=== PATIENT | female | born 1960 | race African-American/Black ===

== ENCOUNTER 2016-07-04 13:10 | Inpatient (IN) ==
[2016-07-04] MEDS ORDERED: SODIUM CHLORIDE 0.9% 1,000 ML IV STA (13:31)
--- NOTE | 2016-07-04 13:34 | Emergency Department Note ---
Arrival - Arrival Chief Complaint: Altered Mental Status Stated Complaint: increased blood glucose ED Nursing Triage Note: Transfer from [facility] for further evaluation of increased blood glucose of 939mg/dl. +altered mental status. Denies pain. Was given NS 500ml bolus and Novolin R 10units IV at [facility] prior to arrival. Biswas catheter noted. Mode of Arrival: Stretcher Limitations: Altered Mental Status Source: Patient, EMS, RN Notes Reviewed Time Seen by Provider: 07/04/16 13:26 - History of Present Illness HPI Narrative: Patient is a 56-year-old white female transferred from [facility] in [place] for evaluation of DKA. Patient is a long history of diabetes mellitus. She apparently has had nausea and vomiting for the last 2 days. Her symptoms began on July 02. Patient was seen at [facility] and found to have a blood sugar greater than 900 with a CO2 of 10 and acidosis consistent with diabetic ketoacidosis. History is limited due to patient's lethargy. Onset (ago): day(s) (2) Consistency: constant Severity: moderate, severe Quality: other Date of Last Menstrual Period: hyst Allergies/Adverse Reactions: Allergies Allergy/AdvReac Type Severity Reaction Status Date / Time acetaminophen [From Lortab] Allergy Severe Vomiting Verified 07/04/16 13:23 hydrocodone [From Lortab] Allergy Severe Vomiting Verified 07/04/16 13:23 Penicillins Allergy Severe RASH Verified 07/04/16 13:23 adhesive Allergy Unknown Unknown/Unable Verified 07/04/16 13:23 to obtain Home Medications: Home Medications Medication Instructions Recorded Confirmed Type HumuLIN 70/30 35 units SUBCUT BEDTIME 09/24/14 10/18/14 History HumuLIN 70/30 60 units SUBCUT DAILY 09/24/14 10/18/14 History Lisinopril 10 mg PO DAILY 09/24/14 10/18/14 History Metoclopramide Tab [Reglan Tab] 10 mg PO QID 09/24/14 10/18/14 History Omeprazole 20 mg PO DAILY 09/24/14 10/18/14 History Potassium Chloride [K-Tab ER] 1 tablet PO DAILY 09/24/14 10/18/14 History Pravastatin [Pravachol] 20 mg PO BEDTIME 09/24/14 10/18/14 History glyBURIDE [Diabeta] 5 mg PO DAILY W/BREAKFAST 09/24/14 10/18/14 History Review of System - Review of System ROS unobtainable: due to mental status Medical,Surgical,& Family Hx - Medical History Cardio: History of: Hypertension HEENT: History of: Eye Problem, Glaucoma Endocrine: History of: Diabetes Mellitus (IDDM), Diabetes Mellitus (NIDDM) Respiratory: History of: Obstructive Sleep Apnea Gastrointestinal: History of: GERD, GI Problems (GASTROPARESIS) Other: History of: MRSA - Surgical History HEENT Surgeries: Surgical HX of: Eye Surgery (CATARACT SURGERY) Abdominal Surgeries: Surgical HX of: Cholecystectomy Reproductive Surgeries: Surgical HX of;: Breast Surgery (BX X2), Hysterectomy - Family History Family History: Reports;: Family Diabetes (MOM), Family Heart Disease (DAD), Family Hypertension (MOM), Family Psychiatric Problems (MOM), Family Stroke (MOM ) - Social History Smoking Status: Never smoker Frequency of Alcohol Use: None Type of Drug Use: None Functional capacity: independent ambulation Exam Vital Signs: Vital Signs Temperature 98.0 F 07/04/16 13:10 Pulse Rate 18 L 07/04/16 13:10 Respiratory Rate 20 07/04/16 13:10 Blood Pressure 104/62 07/04/16 13:10 O2 Sat by Pulse Oximetry 100 07/04/16 13:10 GENERAL: This is a well-nourished well-developed obese, lethargic black female in no apparent distress. VITAL SIGNS: Reviewed HEENT: Head is atraumatic and normocephalic. Pupils are equal round react to light. Extraocular movements are intact. Oropharynx is benign with dry mucous membranes. NECK: Neck is soft and supple without tenderness. There are no masses. There is no lymphadenopathy. LUNGS: Lungs are clear to auscultation. Chest rises symmetrically. There is no chest wall tenderness. CV: Heart is regular rate and rhythm without murmurs rubs or gallops. ABDOMEN: Abdomen is soft, nontender to palpation. There are no abdominal abnormal masses palpated. There is no organomegaly. Bowel sounds are present and active. SKIN: Skin is warm and dry. No rash. EXTREMITIES: Patient has full range of motion without tenderness. There is no pedal edema. NEUROLOGIC: Lethargic. Patient is arousable to vocal stimulus. Cranial nerves II through XII are grossly intact. Motor is 5 over 5 in all extremities bilaterally. Course Course Narrative: Patient was given an IV fluid bolus while in the emergency department. She will be started on insulin infusion. - Consultations Consultation #1: Discussed with hospitalist. Patient will be admitted to their service. Time: 13:40 Results - Labs Lab Results: I have reviewed the patients labs - EKG EKG results: interpreted by KATHYAD - Diagnostic Findings Procedure: Chest x-ray: image reviewed by me (Chest x-ray reviewed from [facility] and this reveals no evidence of cardiomegaly or pleural effusions. There is no infiltrate.), CT: image reviewed by me (CT head from [facility]: No evidence of acute intracranial lesion or hemorrhage.) Disposition Clinical Impression: Diabetic ketoacidosis Case discussed with: patient Time of Disposition: 13:36
[2016-07-04] MEDS ORDERED: INSULIN REGULAR DRIP 100 ML IV SCH (14:00)
[2016-07-04] MEDS ORDERED: INSULIN REGULAR DRIP 100 ML IV ONE (14:11)
[2016-07-04 14:24] LABS: ABG Base Excess -19.3 MMOL/L (-2.5-2.5); ABG HCO3 10.6 MMOL/L (20-26); ABG Oxygen Saturation 98.1 % (95-100); ABG PH 7.239 (7.35-7.45); ABG TCO2 6.3 MMOL/L (23-27); Allen Test Positive; Pt O2 Delivery Device Room Air
[2016-07-04 14:26] LABS: ABG PCO2 16.5 MM HG (35-48)
[2016-07-04 14:43] LABS: Calcium 7.8 MG/DL (8.5-10.1); Osmolality,Calculated 327.5 MOS/KG (273-304); Potassium 5.1 MMOL/L (3.5-5.1)
[2016-07-04] MEDS ORDERED: MAGNESIUM SULF RIDER 2 GM in PREMIX 1 EACH IV PRN (14:44)
[2016-07-04] MEDS ORDERED: MAGNESIUM SULF RIDER 4 GM in PREMIX 1 EACH IV PRN (14:44)
[2016-07-04] MEDS ORDERED: INSULIN REGULAR 100 UNIT/ML IV ONE (14:44)
[2016-07-04] MEDS ORDERED: DEXTROSE 50% 25 GM/50 ML VIAL IV PRN ×2 (14:44)
[2016-07-04] MEDS ORDERED: SODIUM PHOSPHATE INJ 26 MMOL in SODIUM CHLORIDE 0.9% 250 ML IV PRN (14:44)
[2016-07-04] MEDS ORDERED: SODIUM CHLORIDE 0.9% 1,000 ML IV ONE (14:44)
[2016-07-04] MEDS ORDERED: SODIUM BICARB INJ 100 MEQ in STERILE WATER INJ 400 ML IV PRN (14:44)
--- NOTE | 2016-07-04 15:18 | XRay Report ---
Referring Physician: SEVERIANO Linda Exam: XR chest 1V Date: July 04, 2016 at 3:00 PM Reason: Shortness of breath Comparison: Chest single view July 04, 2016 at 11:28 AM Findings: The cardiac silhouette is upper normal in size. The lungs are poorly expanded, and there is likely minimal atelectasis at the medial right lung base. The interstitial markings are also slightly prominent bilaterally. This could be secondary to the poor inspiratory depth or mild pulmonary edema. No pneumothorax or pleural effusion is identified. No acute osseous process is seen. Impression: 1. Borderline cardiomegaly. 2. The lungs are poorly expanded, and there is likely minimal atelectasis at the medial right lung base. The interstitial markings are also slightly prominent bilaterally, which could be secondary to the poor inspiratory depth or mild pulmonary edema. PROCEDURE INTERPRETED AT [facility] DEPARTMENT OF RADIOLOGY Final Report Signed by: Dr. Lucas Francis
--- NOTE | 2016-07-04 15:19 | Hospitalist History & Physical ---
<Javon Kwong - Last Filed: 07/04/16 14:52> Assessment and Plan - Time spent with patient Time spent with patient: Greater than 30 minutes (1) Diabetic ketoacidosis Status: Acute Assessment and plan: Patient admitted to ICU for further evaluation and treatment. pH 7.239, pCO2 16.5, HCO3 10.6, Glu 719, b-Hydroxybutyric 5. Initiate DKA protocol. Current Visit: Yes (2) Gastroparesis Status: Acute Assessment and plan: History of gastroparesis. Patient takes Reglan at home. Current Visit: Yes History of Present Illness Chief complaint: DKA History of present illness: Ms. Mckeon is a 56 year old female witha history of IDDM, hypertension and gastroparesis who presents to the [facility] ED for further evaluation of diabetic ketoacidosis. The patient is a known diabetic with an extensive diabetic history , however she denies having ever had DKA. On exam, she is lethargic and her speech is delayed. She complains of being cold and yawns frequently. Her sister , whom she lives with, is at bedside and gave most of the history. The patient was last known well on Saturday morning before she began vomiting. Her family initially thought this was due to her gastroparesis, however, it was unrelenting and they were unable to administer a phenergan suppository. This morning, the patient continued to be lethargic and was unable to move. She would not get off the couch and was seemingly unable to use her arms. She was seen at [facility] and found to have blood sugars in excess of 900 with a CO2 of 10, pH of 7.1. ROS is limited due to patient's current level of consciousness. Preliminary lab work at [facility] shows pH 7.239, pCO2 16.5, HCO3 10.6 , Glu 719, b-Hydroxybutyric 5. She will be admitted to the ICU for further evaluation and treatment. Patient is a full code. Case has been discussed with Dr. Dooley. Home Medications Medication Instructions Recorded Confirmed Type HumuLIN 70/30 35 units SUBCUT BEDTIME 09/24/14 10/18/14 History HumuLIN 70/30 60 units SUBCUT DAILY 09/24/14 10/18/14 History Lisinopril 10 mg PO DAILY 09/24/14 10/18/14 History Metoclopramide Tab [Reglan Tab] 10 mg PO QID 09/24/14 10/18/14 History Omeprazole 20 mg PO DAILY 09/24/14 10/18/14 History Potassium Chloride [K-Tab ER] 1 tablet PO DAILY 09/24/14 10/18/14 History Pravastatin [Pravachol] 20 mg PO BEDTIME 09/24/14 10/18/14 History glyBURIDE [Diabeta] 5 mg PO DAILY W/BREAKFAST 09/24/14 10/18/14 History Allergies Allergy/AdvReac Type Severity Reaction Status Date / Time acetaminophen [From Lortab] Allergy Severe Vomiting Verified 07/04/16 13:23 hydrocodone [From Lortab] Allergy Severe Vomiting Verified 07/04/16 13:23 Penicillins Allergy Severe RASH Verified 07/04/16 13:23 adhesive Allergy Unknown Unknown/Unable Verified 07/04/16 13:23 to obtain Medical,Surgical,& Family Hx - Medical History Cardio: History of: Hypertension HEENT: History of: Eye Problem, Glaucoma Endocrine: History of: Diabetes Mellitus (IDDM), Diabetes Mellitus (NIDDM) Respiratory: History of: Obstructive Sleep Apnea Gastrointestinal: History of: GERD, GI Problems (GASTROPARESIS) Other: History of: MRSA - Surgical History HEENT Surgeries: Surgical HX of: Eye Surgery (CATARACT SURGERY) Abdominal Surgeries: Surgical HX of: Cholecystectomy Reproductive Surgeries: Surgical HX of;: Breast Surgery (BX X2), Hysterectomy - Family History Family History: Reports;: Family Diabetes (MOM), Family Heart Disease (DAD), Family Hypertension (MOM), Family Psychiatric Problems (MOM), Family Stroke (MOM ) - Social History Smoking Status: Never smoker Frequency of Alcohol Use: None Type of Drug Use: None ROS unobtainable: due to encephalopathy Exam - Constitutional General appearance: morbidly obese - Head Head exam: Present: normal inspection, normocephalic, atraumatic - Eye Eye exam: Present: EOMI. Absent: conjunctival injection, nystagmus - ENT ENT exam: Present: normal exam, normal external ear exam - Neck Neck exam: Present: normal inspection. Absent: lymphadenopathy, tenderness - Respiratory Respiratory exam: Present: decreased breath sounds. Absent: rhonchi, wheezes - Cardiovascular Cardiovascular exam: Present: tachycardia. Absent: carotid bruit - GI/Abdominal GI/Abdominal exam: Present: hypoactive bowel sounds. Absent: ascites, distended , mass, tenderness - Extremities Exam Extremities exam: Present: normal capillary refill. Absent: edema - Back Exam Back exam: Present: normal inspection. Absent: CVA tenderness (L), CVA tenderness (R) - Neurological Exam Neurological exam: Present: altered. Absent: alert, oriented X3 - Psychiatric Psychiatric exam: Absent: anxious, depressed - Skin Skin exam: Present: warm, dry, erythema Results - Labs Lab Results: I have reviewed the past 24 hour labs - Diagnostic Findings Procedure: Chest x-ray: image reviewed by me, report reviewed by me <Olaf Dooley - Last Filed: 07/04/16 15:36> History of Present Illness History of present illness: Ms. Mckeon is a 56 year old female with previous history of type 1 diabetes mellitus. For approximately 24 hours prior to admission her family has noted her to be lethargic. They brought her to [facility] where she was found to have a blood glucose greater than 900 with PCO2 10 and pH of 7.10. She was transferred to [facility] for further evaluation and management of diabetic ketoacidosis. On admission to the emergency department here laboratory studies demonstrated the following: Arterial pH 7.239 PCO2 16.5 bicarbonate 10.6 and glucose 719. Physical examination disclosed a lethargic female with no gross abnormalities. She will be treated here with the standard protocol for diabetic ketoacidosis. I have discussed this case with the physician's speech pathologist assistant SEVERIANO Linda. I have reviewed all the pertinent laboratory test results, and interviewed the patient, and examined the patient. I am in agreement with the plans as described by Mr. Kwong. Exam - Constitutional Vitals: Period Temp Pulse Resp BP Sys/Malagon Pulse Ox Last 24 Hr 107-116 16-20 102-118/31-54 99-100 Results - Labs CBC & BMP: 07/04/16 14:10
[2016-07-04] MEDS: INSULIN REGULAR DRIP 100 ML IV SCH (15:25)
[2016-07-04 15:27] LABS: Apearance,Urine Slightly Hazy (Clear); Bacteria,Urine Occasional /HPF (Few); Bilirubin,Urine Negative (Negative); Blood, Urine Small mg/dL (Negative); Glucose,Urine (UA) >=500 mg/dL (Negative); Ketones,Urine 80 mg/dL (Negative); Mucus,Urine Occasional /LPF (Occasional); Nitrite,Urine Negative (Negative); Protein,Urine Negative; Squamous Epithelial Cell,Urine Occasional /HPF (0-10); Urine Color Straw (Yellow); Urine Specific Gravity 1.022 (1.001-1.035); Urine Urobilinogen < 2.0 EU/DL (0.2-1.0); WBC,Urine 1 /HPF (0-6)
[2016-07-04] MEDS: ENOXAPARIN 40 MG/0.4 ML SYRINGE SUBCUT SCH (15:39)
[2016-07-04 16:17] LABS: ABG HCO3 12.6 MMOL/L (20-26); ABG Oxygen Saturation 98.6 % (95-100); ABG PH 7.295 (7.35-7.45)
[2016-07-04 16:25] LABS: ABG PCO2 18.6 MM HG (35-48)
[2016-07-04 16:33] LABS: Basophils % 0.2 % (0.0-0.8); Eosinophils % 0.1 % (0.00-10.9); Hematocrit 37.6 VOL% (35.7-47.0); Hemoglobin 12.4 GM/DL (12.0-16.0); Immature Granulocytes % 1.2 %; Immature Granulocytes Absolute 0.23 #; Lymphocytes # 2.1 10*3/uL (1.4-4.0); Lymphocytes % 10.4 % (21.3-54.2); Mean Corpuscular Hemoglobin 26 PG (27-34); Mean Corpuscular Volume 79.5 FL (87-102); Mean Platelet Volume 10.9 FL (9.6-12.0); Monocytes % 10.1 % (1.7-12.7); Neutrophils # 15.5 10*3/uL (1.4-7.4); Platelet Count 261 T/CUMM (130-400); Red Blood Count 4.73 MC/CUMM (3.8-5.5); Red Cell Distribution Width 14.3 % (9.3-17.3); White Blood Count 19.8 T/CUMM (4-12)
[2016-07-04] MEDS: SODIUM CHLORIDE 0.9% 1,000 ML IV SCH ×2 (16:36→18:41)
[2016-07-04 16:56] LABS: Magnesium 2.7 MG/DL (1.8-2.4); Phosphorous 4.1 MG/DL (2.5-4.9)
[2016-07-04 16:57] LABS: Calcium 7.8 MG/DL (8.5-10.1); Osmolality,Calculated 325.1 MOS/KG (273-304); Potassium 4.2 MMOL/L (3.5-5.1)
[2016-07-04] MEDS ORDERED: INSULIN REGULAR 100 UNIT/ML IV PRN (18:17)
[2016-07-04 18:39] LABS: ABG Base Excess -14.9 MMOL/L (-2.5-2.5); ABG HCO3 13.3 MMOL/L (20-26); ABG Oxygen Saturation 98.9 % (95-100); ABG PH 7.318 (7.35-7.45); ABG TCO2 8.7 MMOL/L (23-27); Allen Test Positive; Pt O2 Delivery Device Room Air
[2016-07-04] MEDS ORDERED: VANCOMYCIN INJ 1,500 MG in SODIUM CHLORIDE 0.9% 500 ML IV SCH (19:00)
[2016-07-04 19:09] LABS: Calcium 7.8 MG/DL (8.5-10.1); Osmolality,Calculated 321.7 MOS/KG (273-304); Potassium 3.9 MMOL/L (3.5-5.1)
[2016-07-04] MEDS ORDERED: SODIUM CHLORIDE 0.9% 1,000 ML IV SCH (19:45)
[2016-07-04] MEDS ORDERED: LEVOFLOXACIN INJ 500 MG in PREMIX 1 EACH IV SCH (21:00)
[2016-07-04 23:04] LABS: Calcium 7.3 MG/DL (8.5-10.1); Osmolality,Calculated 318.1 MOS/KG (273-304); Potassium 3.9 MMOL/L (3.5-5.1)
[2016-07-04] MEDS ORDERED: LEVOFLOXACIN INJ 100 ML IV ONE (23:33)
[2016-07-05] MEDS: POTASSIUM CHLORIDE RIDER 10 MEQ in PREMIX 1 EACH IV PRN ×2 (00:13→01:33)
[2016-07-05] MEDS ORDERED: SODIUM CHLOR 0.45% KCL 20 MEQ 20 MEQ/1,000 ML BAG IV SCH (00:30)
[2016-07-05] MEDS: DEXT 5% NACL 0.45% KCL 20 MEQ 20 MEQ/1,000 ML BAG IV SCH ×5 (01:11→19:00)
[2016-07-05] MEDS: INSULIN REGULAR DRIP 100 ML IV SCH ×2 (04:37→15:59)
[2016-07-05 04:45] LABS: Basophils % 0.2 % (0.0-0.8); Eosinophils % 0.3 % (0.00-10.9); Hematocrit 35.5 VOL% (35.7-47.0); Hemoglobin 12.1 GM/DL (12.0-16.0); Immature Granulocytes % 0.6 %; Lymphocytes # 1.6 10*3/uL (1.4-4.0); Lymphocytes % 10.4 % (21.3-54.2); Mean Corpuscular HGB Conc 34.1 GM/DL (32-36); Mean Corpuscular Hemoglobin 27 PG (27-34); Mean Platelet Volume 10.4 FL (9.6-12.0); Monocytes # 1.9 10*3/uL (0.11-0.8); Monocytes % 11.9 % (1.7-12.7); Neutrophils # 12.1 10*3/uL (1.4-7.4); Neutrophils % 76.6 % (38.7-73.9); Platelet Count 258 T/CUMM (130-400); Red Blood Count 4.55 MC/CUMM (3.8-5.5); Red Cell Distribution Width 14.6 % (9.3-17.3); White Blood Count 15.7 T/CUMM (4-12)
[2016-07-05 05:23] LABS: Osmolality,Calculated 313.1 MOS/KG (273-304)
[2016-07-05 05:25] LABS: Magnesium 2.3 MG/DL (1.8-2.4); Phosphorous 2.5 MG/DL (2.5-4.9)
[2016-07-05] MEDS: ONDANSETRON 4 MG/2 ML VIAL IV PRN (06:00)
[2016-07-05] MEDS: SODIUM CHLOR 0.45% KCL 20 MEQ 20 MEQ/1,000 ML BAG IV SCH ×2 (06:31→12:27)
--- NOTE | 2016-07-05 07:38 | General Surgery Consult Note ---
Assessment and Plan - Time spent with patient Time spent with patient: Less than 30 minutes (1) Abscess of pubic region Status: Acute Assessment and plan: Impression: 1. Abscess of the pubis 2. Diabetic ketoacidosis under control 3. Diabetes mellitus adult onset 4. Obesity Plan: Surgical debridement of abscess of the pubis Current Visit: Yes History of Present Illness Chief complaint: Diabetic ketoacidosis with abscess of the pubis History of present illness: Ms. Mckeon is a 56 year old female -[place] who is obese and has diabetes and comes in with a three-day history some nausea and vomiting and weakness and decreased appetite. Was found to have a blood sugar of 900 on admission and was put in and treated for DKA. We are consulted because a looking for source for her hyperglycemia and found a wound on the pubis which has a good bit of necrotic tissue on it probably represents an old abscess that needs to be debriding cleaned up in order to get that process under control and possibly have the glucose. Home Medications Medication Instructions Recorded Confirmed Type HumuLIN 70/30 35 units SUBCUT BEDTIME 09/24/14 10/18/14 History HumuLIN 70/30 60 units SUBCUT DAILY 09/24/14 10/18/14 History Lisinopril 10 mg PO DAILY 09/24/14 10/18/14 History Metoclopramide Tab [Reglan Tab] 10 mg PO QID 09/24/14 10/18/14 History Omeprazole 20 mg PO DAILY 09/24/14 10/18/14 History Potassium Chloride [K-Tab ER] 1 tablet PO DAILY 09/24/14 10/18/14 History Pravastatin [Pravachol] 20 mg PO BEDTIME 09/24/14 10/18/14 History glyBURIDE [Diabeta] 5 mg PO DAILY W/BREAKFAST 09/24/14 10/18/14 History Allergies Allergy/AdvReac Type Severity Reaction Status Date / Time acetaminophen [From Lortab] Allergy Severe Vomiting Verified 07/04/16 13:23 hydrocodone [From Lortab] Allergy Severe Vomiting Verified 07/04/16 13:23 Penicillins Allergy Severe RASH Verified 07/04/16 13:23 adhesive Allergy Unknown Unknown/Unable Verified 07/04/16 13:23 to obtain Medical,Surgical,& Family Hx - Medical History Cardio: History of: Hypertension HEENT: History of: Eye Problem, Glaucoma Endocrine: History of: Diabetes Mellitus (IDDM), Diabetes Mellitus (NIDDM) Respiratory: History of: Obstructive Sleep Apnea Gastrointestinal: History of: GERD, GI Problems (GASTROPARESIS) Other: History of: MRSA - Surgical History HEENT Surgeries: Surgical HX of: Eye Surgery (CATARACT SURGERY) Abdominal Surgeries: Surgical HX of: Cholecystectomy Reproductive Surgeries: Surgical HX of;: Breast Surgery (BX X2), Hysterectomy - Family History Family History: Reports;: Family Diabetes (MOM), Family Heart Disease (DAD), Family Hypertension (MOM), Family Psychiatric Problems (MOM), Family Stroke (MOM ) - Social History Smoking Status: Never smoker Frequency of Alcohol Use: None Type of Drug Use: None 12 point system: reviewed and no additional remarkable complaints except as stated Exam - Constitutional Vitals: Period Temp Pulse Resp BP Sys/Malagon Pulse Ox Last 24 Hr 97.9 F-98.2 F 100-116 13-24 75-149/9-79 95-100 General appearance: mild distress - Head Head exam: Present: normal inspection - ENT ENT exam: Present: normal exam - Neck Neck exam: Present: normal inspection - Respiratory Respiratory exam: Present: rales - Cardiovascular Cardiovascular exam: Present: RRR - GI/Abdominal GI/Abdominal exam: Present: hypoactive bowel sounds, soft, other (Obese with a necrotic wound of the mons pubis left side without obvious drainage but good bit of necrotic tissue) - Anus/Rectum Anus/Rectum: other (Small abrasion of the sacrum.) - Extremities Exam Extremities exam: Present: normal inspection - Back Exam Back exam: Present: normal inspection - Neurological Exam Neurological exam: Present: alert, oriented X3, CN II-XII intact - Skin Skin exam: Present: normal color, warm, dry Results - Labs CBC & BMP: 07/05/16 04:37 07/05/16 04:37 Lab Results: I have reviewed the past 24 hour labs
--- NOTE | 2016-07-05 07:46 | EKG Report ---
Stationary ECG Study [facility] Test Date: 07/05/2016 7:46 AM Pat Name: STEPHEN SOLITARIO Department: Room: 105 Gender: F Irb Compliance Coordinator: JUAN : 1960 Requested by: Lino Vail Order Number: [id number] Reading MD: SADE RIVERO Intervals [place] Rate: 106 P: 49 NH: 102 QRS: 29 QRSD: 76 T: 259 QT: 336 QTc: 398 Interpretive Statements SINUS TACHYCARDIA WITH SHORT NH INTERVAL POSSIBLE SEPTAL MYOCARDIAL INFARCTION, PROBABLY OLD VERSUS PSEUDOINFARCT PATTERN MODERATE T-WAVE ABNORMALITY, CONSIDER LATERAL ISCHEMIA MODERATE T-WAVE ABNORMALITY, CONSIDER INFERIOR ISCHEMIA Electronically Signed On 07-09-16 07:24:33 CDT by SADE RIVERO [email or web address]
[2016-07-05 08:10] LABS: Calcium 7.8 MG/DL (8.5-10.1); Potassium 4.3 MMOL/L (3.5-5.1)
[2016-07-05 08:29] LABS: PT Patient Result 10.1 SECS; Partial Thromboplastin Time 23.4 SECS (0-40)
[2016-07-05] MEDS ORDERED: CLINDAMYCIN INJ 900 MG in PREMIX 1 EACH IV ONE (08:30)
[2016-07-05] MEDS: SODIUM CHLORIDE 0.45% 1,000 ML IV SCH ×2 (09:26→21:14)
[2016-07-05] MEDS ORDERED: PHENYLEPHRINE 1 MG/10 ML SYRINGE IV ONE (09:40)
[2016-07-05] MEDS ORDERED: LIDOCAINE 2% 5 ML VIAL ONE (09:40)
[2016-07-05] MEDS ORDERED: ONDANSETRON 4 MG/2 ML VIAL ONE (09:40)
[2016-07-05] MEDS ORDERED: KETOROLAC 30 MG/1 ML VIAL ONE (09:40)
[2016-07-05] MEDS ORDERED: PROPOFOL 200 MG/20 ML VIAL IV ONE (09:40)
[2016-07-05] MEDS ORDERED: LIDOCAINE 1%/EPI INJ 20 ML VIAL ONE (10:01)
[2016-07-05] MEDS ORDERED: BUPIVACAINE 0.25% 50 ML VIAL ONE ×2 (10:01→10:04)
--- NOTE | 2016-07-05 10:30 | Operative Note ---
Date of procedure: 07/05/16 Pre-op diagnosis: Abscess of the pubis Post-op diagnosis: same Procedure: Operative note: Preoperative diagnosis: Abscess of the pubis Postoperative diagnosis: Same Procedure: Excisional debridement of abscess cyst of the left side of the pubis Surgeon Dr. Vail Anesthesia was managed anesthetic care with local Brief history: 56-year-old -Faroese female who came in with DKA and on investigation had what looked like an abscess on the mons pubis left side. Her glucoses were under better control but felt is important to go ahead and get this area cleaned up and debrided at this time. Procedure: Patient supine position prepped and draped in sterile fashion timeout and antibiotics completed approaches area of the mons pubis just to the left of midline. There is a necrotic area of skin that is slightly raised with some minor drainage measuring 3 x 10 x 0 cm. We then infiltrated around with local anesthetic. With a knife blade and ellipsed this area completely out with a little residual necrotic draining material in the subtenons tissue. We debrided the skin and necrotic skin and necrotic subtenons tissue from the wound bed. I then took the knife and debrided this area of necrotic subtenons tissue and scant taken that for cultures. We then debrided a good bit loose fatty tissue in the wound bed need. We then irrigated the wounds with saline solution and used to light cauterization control bleeding. We now have a wound that is 4 x 2 x 1.5 cm in size. We then packed it with the Dakin's wet gauze took patient recovery. Estimated blood loss 5 cc Sponge count correct 2 Drains none Complications none Condition stable satisfactory Anesthesia: MAC, local (0.25% Marcaine with epinephrine mixed [id number] 1% Xylocaine plain) Surgeon / Physician: Lino Vail Estimated blood loss: minimal Specimens: other (Tissue for pathology and culture) Condition: stable Disposition: ICU Results - Labs CBC & BMP: 07/05/16 04:37 07/05/16 07:27 Discharge Plan - Discharge Medications No Action Metoclopramide Tab [Reglan Tab] 10 mg PO QID Lisinopril 10 mg PO DAILY glyBURIDE [Diabeta] 5 mg PO DAILY W/BREAKFAST HumuLIN 70/30 60 units SUBCUT DAILY HumuLIN 70/30 35 units SUBCUT BEDTIME Potassium Chloride [K-Tab ER] 1 tablet PO DAILY Omeprazole 20 mg PO DAILY Pravastatin [Pravachol] 20 mg PO BEDTIME - Follow Up or Referral - Forms/Instructions
--- NOTE | 2016-07-05 10:47 | Anesthesia Post-Op ---
Anesthesia Post OP - Post Ansesthetic Evaluation Patient seen in post op: Yes Resp: within normal limits CV: within normal limits Mental: within normal limits Temp: within normal limits Zrce-Sm-Gbwyboqly: within normal limits Nausea and Vomiting: within normal limits Pain: within normal limits
[2016-07-05] MEDS ORDERED: fentaNYL 100 MCG/2 ML VIAL ONE (10:49)
[2016-07-05] MEDS ORDERED: MIDAZOLAM 2 MG/2 ML VIAL ONE (10:49)
[2016-07-05 11:32] LABS: Calcium 8.4 MG/DL (8.5-10.1); Osmolality,Calculated 304.3 MOS/KG (273-304); Potassium 4.9 MMOL/L (3.5-5.1)
--- NOTE | 2016-07-05 13:23 | Hospitalist Progress Note ---
Exam - Constitutional Vitals: Period Temp Pulse Resp BP Sys/Malagon Pulse Ox Last 24 Hr 97 F-98.9 F 100-116 13-24 75-187/9-99 94-100 Results - Labs CBC & BMP: 07/05/16 04:37 07/05/16 11:11
--- NOTE | 2016-07-05 13:31 | Hospitalist Progress Note ---
Assessment and Plan (1) Abdominal wall abscess Status: Acute Assessment and plan: Stable status post incision and drainage. She will continue on intravenous vancomycin and clindamycin. Current Visit: Yes (2) Diabetic ketoacidosis Status: Acute Assessment and plan: Her most recent blood glucose was 141. All of her blood glucose today have been below 200. I would discontinue the insulin infusion and begin her on sliding scale regular insulin coverage. Current Visit: Yes (3) Gastroparesis Status: Acute Assessment and plan: Stable. Current Visit: Yes (4) Acute on chronic renal failure Status: Acute Assessment and plan: Her BUN and creatinine have decreased from 56 and 2.3 on admission to 38 and 1.8 today. I will continue infusion of intravenous normal saline. Current Visit: Yes (5) Encephalopathy Status: Acute Assessment and plan: She was extremely lethargic yesterday, attributed to her infection and diabetic ketoacidosis. She remains lethargic today will know she is more awake than yesterday. She will undergo a CT scan of the head for further evaluation. Current Visit: Yes Hospitalist: Subjective Interval history: Ms. Mckeon is a 56-year-old -[place] female with previously known history of type 1 diabetes mellitus. She was hospitalized here yesterday with diabetic ketoacidosis and an abscess of the pubis. She has been treated with intravenous vancomycin and clindamycin. She underwent incision and drainage of the abscess earlier today. She has been treated with standard intravenous regular insulin infusion protocol. Her most recent blood glucose is 141. She continues to be lethargic but is much more responsive than she was yesterday. Exam - Constitutional Vitals: Period Temp Pulse Resp BP Sys/Malagon Pulse Ox Last 24 Hr 97 F-98.9 F 100-116 13-24 75-187/9-99 94-100 General appearance: no acute distress - Head Head exam: Present: normal inspection, normocephalic - Eye Eye exam: Present: EOMI Pupils: Present: MARCO - Neck Neck exam: Present: normal inspection - Respiratory Respiratory exam: Present: clear to auscultation bilaterally - Cardiovascular Cardiovascular exam: Present: regular rate and rhythm - GI/Abdominal GI/Abdominal exam: Present: normal bowel sounds, soft, other (Bandage of lower abdomen.) - Extremities Exam Extremities exam: Present: normal inspection - Neurological Exam Neurological exam: Present: alert, other (Lethargic) - Psychiatric Psychiatric exam: Present: normal affect - Skin Skin exam: Present: normal color, warm, dry Results - Labs CBC & BMP: 07/05/16 04:37 07/05/16 11:11
[2016-07-05] MEDS ORDERED: DEXTROSE 50% 25 GM/50 ML VIAL IV PRN (14:04)
[2016-07-05] MEDS: ENOXAPARIN 40 MG/0.4 ML SYRINGE SUBCUT SCH (16:10)
[2016-07-05] MEDS: CLINDAMYCIN INJ 900 MG in PREMIX 1 EACH IV SCH (16:10)
[2016-07-05] MEDS: INSULIN NPH/REGULAR 70/30 100 UNIT/ML SUBCUT SCH (16:10)
[2016-07-05] MEDS: INSULIN REGULAR 100 UNIT/ML SUBCUT SCH ×2 (16:13→21:07)
--- NOTE | 2016-07-05 16:42 | CT Report ---
History: Altered mental status. Encephalopathy. Lethargic Date: 07/05/2016 Study: CT head without contrast Comparison exam: Outside CT head July 04, [address] sections were obtained through the head without IV contrast. This CT exam was performed using one or more the following dose reduction techniques: Automated exposure control, adjustment of the MA and/or KV according to patient size, or use of iterative reconstruction technique. The ventricles are midline in position without evidence of hydrocephalus. There is no mass or parenchymal hemorrhage. There is no gross CT evidence of acute cortical stroke. There is no acute extra-axial hematoma. There is some minimal mucosal thickening in the ethmoid air cells bilaterally. There is no acute abnormality of the calvarium. There is mild carotid artery calcification. Impression: No acute intracranial process compared to the previous study PROCEDURE INTERPRETED AT [facility] [place] DEPARTMENT OF RADIOLOGY Final Report Signed by: Dr. Heaven Morrell
[2016-07-05 17:25] LABS: Calcium 7.8 MG/DL (8.5-10.1); Osmolality,Calculated 306.1 MOS/KG (273-304); Potassium 3.7 MMOL/L (3.5-5.1)
[2016-07-05] MEDS: VANCOMYCIN INJ 1,500 MG in SODIUM CHLORIDE 0.9% 500 ML IV SCH (19:02)
[2016-07-05] MEDS ORDERED: INSULIN GLARGINE 100 UNIT/ML SUBCUT SCH (21:00)
[2016-07-05] MEDS: LEVOFLOXACIN INJ 500 MG in PREMIX 1 EACH IV SCH (21:08)
[2016-07-05] MEDS: hydrALAZINE 20 MG/1 ML VIAL IV PRN (23:03)
[2016-07-06] MEDS: CLINDAMYCIN INJ 900 MG in PREMIX 1 EACH IV SCH (00:35)
[2016-07-06] MEDS: SODIUM CHLORIDE 0.45% 1,000 ML IV SCH ×3 (00:46→15:30)
[2016-07-06] MEDS: ONDANSETRON 4 MG/2 ML VIAL IV PRN ×4 (02:52→21:36)
[2016-07-06] MEDS: hydrALAZINE 20 MG/1 ML VIAL IV PRN ×5 (02:54→22:36)
[2016-07-06 07:23] LABS: Basophils # 0.1 10*3/uL (0.0-0.2); Basophils % 0.4 % (0.0-0.8); Eosinophils # 0.1 10*3/uL (0.0-0.87); Eosinophils % 0.5 % (0.00-10.9); Hematocrit 37.8 VOL% (35.7-47.0); Immature Granulocytes % 1.9 %; Immature Granulocytes Absolute 0.22 #; Lymphocytes # 1.7 10*3/uL (1.4-4.0); Lymphocytes % 15.3 % (21.3-54.2); Mean Corpuscular HGB Conc 31.7 GM/DL (32-36); Mean Corpuscular Hemoglobin 26 PG (27-34); Mean Corpuscular Volume 82.2 FL (87-102); Monocytes % 9.1 % (1.7-12.7); Neutrophils # 8.3 10*3/uL (1.4-7.4); Neutrophils % 72.8 % (38.7-73.9); Platelet Count 183 T/CUMM (130-400); Red Cell Distribution Width 15.3 % (9.3-17.3); White Blood Count 11.4 T/CUMM (4-12)
[2016-07-06 07:43] LABS: Calcium 8.1 MG/DL (8.5-10.1); Potassium 4.2 MMOL/L (3.5-5.1)
--- NOTE | 2016-07-06 08:38 | General Surgery Progress Note ---
Assessment and Plan - Time spent with patient Time spent with patient: Less than 30 minutes (1) Abscess of pubic region Status: Acute Assessment and plan: 07/06/16 Stable post op I&D of pubic abscess. We'll begin dressing changes/ irrigations today. Continue empiric antibiotics until final cultures are available. Her DKA is responding. OK to move to the floor and begin teaching her how to manage this wound; she may need family support and/or Home Health. Current Visit: Yes Subjective Patient reports: Present: pain is less, nausea Exam - Constitutional Vitals: Period Temp Pulse Resp BP Sys/Malagon Pulse Ox Last 24 Hr 97 F-98.9 F 93-120 13-22 93-187/46-111 94-100 General appearance: no acute distress, morbidly obese - GI/Abdominal GI/Abdominal exam: Present: hypoactive bowel sounds, other (Obese, soft. No skin redness, induration, or new abscesses. No guarding. Pubis dressings clean, dry. We did not remove due to pt is nauseated and awaiting both anti-emetics plus pain meds for dressing change. ) Results - Labs CBC & BMP: 07/06/16 05:52 07/06/16 05:52 Lab Results: I have reviewed the past 24 hour labs (Post op labs stable; Creatinine falling. Gram stain shows many Gram positives in pairs, chains.)
[2016-07-06] MEDS ORDERED: PNEUMOCOCCAL VACCINE (23 VALENT) 0.5 ML VIAL IM ONE (09:00)
[2016-07-06] MEDS: INSULIN NPH/REGULAR 70/30 100 UNIT/ML SUBCUT SCH ×2 (09:29→16:52)
[2016-07-06] MEDS: INSULIN REGULAR 100 UNIT/ML SUBCUT SCH ×4 (09:30→20:22)
[2016-07-06] MEDS: PANTOPRAZOLE 40 MG TABLET PO SCH (09:32)
--- NOTE | 2016-07-06 10:05 | Hospitalist Progress Note ---
Assessment and Plan (1) Abdominal wall abscess Status: Acute Assessment and plan: Stable status post incision and drainage day 1. She will continue on intravenous vancomycin and clindamycin. Current Visit: Yes (2) Diabetic ketoacidosis Status: Acute Assessment and plan: Her blood glucoses during the last 24 hours have been 247, 213, 210, and 203. I will continue her present insulin regimen. Current Visit: Yes (3) Gastroparesis Status: Acute Assessment and plan: She is experiencing nausea and vomiting today, which she states is commonly associated with her gastroparesis. I will restart her Reglan. Current Visit: Yes (4) Acute on chronic renal failure Status: Acute Assessment and plan: Her BUN and creatinine have decreased from 56 and 2.3 on admission to 24 and 1.20 today. I will continue infusion of intravenous normal saline. Current Visit: Yes (5) Encephalopathy Status: Acute Assessment and plan: She has returned to her normal baseline mental status.A CT scan of the head demonstrated no acute abnormalities. Current Visit: Yes (6) Atrial fibrillation with rapid ventricular response Status: Acute Assessment and plan: She presently has a heart rate of approximately 1 70/min. She is asymptomatic with no palpitations, chest pain, or shortness of breath. I will start her on intravenous amiodarone and full dose therapeutic Lovenox. I will obtain an echocardiogram. Current Visit: Yes Hospitalist: Subjective Interval history: Ms. Mckeon is a 48-year-old -[place] female with previously known history of type 1 diabetes mellitus and diabetic gastroparesis. She was hospitalized here 2 days ago with diabetic ketoacidosis, acute renal failure, and an abscess of the pubis. She has been treated with intravenous vancomycin and clindamycin. She underwent incision and drainage of the abscess yesterday. The intravenous regular insulin infusion protocol was discontinued yesterday and she was begun on sliding scale insulin coverage and glargine insulin. Her main complaint today is of nausea and vomiting which she attributes to her gastroparesis. Telemetry monitoring is demonstrated atrial fibrillation with rapid ventricular response. Her present heart rate is 1 70/min. She is not experiencing chest pain, shortness of breath, or palpitations. Exam - Constitutional Vitals: Period Temp Pulse Resp BP Sys/Malagon Pulse Ox Last 24 Hr 97 F-98.9 F 93-120 13-22 93-187/46-111 94-100 General appearance: no acute distress - Head Head exam: Present: normal inspection, normocephalic - Eye Eye exam: Present: EOMI Pupils: Present: MARCO - Neck Neck exam: Present: normal inspection - Respiratory Respiratory exam: Present: clear to auscultation bilaterally - Cardiovascular Cardiovascular exam: Present: irregular rhythm - GI/Abdominal GI/Abdominal exam: Present: normal bowel sounds, soft, other (Lower abdomen is bandaged.) - Extremities Exam Extremities exam: Present: normal inspection - Neurological Exam Neurological exam: Present: alert, oriented X3 - Psychiatric Psychiatric exam: Present: normal affect, normal mood - Skin Skin exam: Present: normal color, warm, dry Results - Labs CBC & BMP: 07/06/16 05:52 07/06/16 05:52
[2016-07-06] MEDS ORDERED: AMIODARONE INJ 150 MG in DEXTROSE 5% 100 ML IV ONE (10:30)
[2016-07-06] MEDS ORDERED: AMIODARONE INJ 450 MG in DEXTROSE 5% 241 ML IV SCH (10:30)
--- NOTE | 2016-07-06 10:52 | Pathology Report from [facility] ---
ACCESSION # : [id number] PATIENT NAME : Massiel Mckeon ORDERING DR : NEGRO HIRSCH MD CLINICAL HX: Pelvic abscess POST-OP DX: Same SPECIMEN INFO: Pelvic abscess tissue GROSS DESCRIPTION: Received in formalin labeled "MASSIEL MCKEON" is a 3.6 x 1.4 x 0.9 cm hyperemic michael tissue fragment with ulcerated skin surface. Ground Wirer sections are submitted in one cassette. DIAGNOSIS FOR MASSIEL MCKEON: PELVIC ABSCESS TISSUE, DEBRIDEMENT: Ulceration, necrosis, suppuration/abscess. SERVICE DATE: 07/05/2016 REPORT DATE: 07/06/2016 PATHOLOGIST: Kg Segundo M.D. [facility]ITAL[facility]rendon
[2016-07-06] MEDS: ENOXAPARIN 80 MG/0.8 ML SYRINGE SUBCUT SCH ×2 (11:42→21:36)
[2016-07-06] MEDS: METOCLOPRAMIDE 10 MG TABLET PO SCH ×3 (12:17→21:37)
[2016-07-06] MEDS: SODIUM HYPOCHLORITE 0.25% IRRIG 473 ML BOTTLE TOP SCH (14:41)
[2016-07-06] MEDS: AMIODARONE INJ 450 MG in DEXTROSE 5% 241 ML IV SCH (18:06)
[2016-07-06] MEDS: VANCOMYCIN INJ 1,500 MG in SODIUM CHLORIDE 0.9% 500 ML IV SCH (20:33)
--- NOTE | 2016-07-06 20:57 | ECHO Report ---
Massiel Mckeon Exam Date: 07/06/2016 10:42 Referring Physician: Technologist: Saskia Ackerman Age: 56 Ht (in): 56 Wt (lb): 229 Gender: F Exam Location: [facility] Echo Indications: morbid obesity, diabetes, A FIB, renal failure BP: 181 / 94 HR: 100 Rhythm: tachycardia Technical Quality: Technically difficult study IMPRESSIONS Normal LV systolic function, ejection fraction 55%. Grade 1/4 diastolic dysfunction. Moderate to severe concentric left ventricular hypertrophy. Mild mitral, tricuspid, aortic regurgitation MEASUREMENTS (Male / Female) Normal Values 2D ECHO LV Diastolic Diameter PLAX 3.0 cm 4.2 - 5.9 / 3.9 - 5.3 cm LV Systolic Diameter PLAX 2.1 cm LV Fractional Shortening PLAX 28.9 % IVS Diastolic Thickness 2.0 cm 0.6 - 1.0 / 0.6 - 0.9 cm LVPW Diastolic Thickness 1.4 cm 0.6 - 1.0 / 0.6 - 0.9 cm RV Internal Dim ED PLAX 3.2 cm Aortic Root Diameter 2.5 cm LA Systolic Diameter LX 3.7 cm 3.0 - 4.0 / 2.7 - 3.8 cm DOPPLER TR Peak Velocity 202.0 cm/s TR Peak Gradient 16.3 mmHg FINDINGS Left Ventricle Severely increased septal wall thickness. Moderately increased posterior wall thickness. Moderate concentric left ventricular hypertrophy with diastolic dysfunction. Left ventricular ejection fraction is estimated at 55 %. Right Ventricle Moderately increased right ventricular size. Right Atrium Normal right atrial size. Left Atrium Normal left atrial size. Mitral Valve Mild mitral valve sclerosis. Mild mitral valve regurgitation. Aortic Valve Aortic valve sclerosis. Mild aortic valve regurgitation. Tricuspid Valve Morphologically normal tricuspid valve. Mild tricuspid valve regurgitation. Tricuspid regurgitation velocities suggest a PAP of 16.3 mmHg + RAP . Pulmonic Valve Pulmonic valve not well visualized. Pericardium No pericardial effusion. Aorta Normal size aortic root and proximal ascending aorta. Yumiko Damon MD (Electronically Signed) Final Date: 06 July 2016 20:56
[2016-07-06] MEDS: PANTOPRAZOLE 40 MG VIAL IV SCH (21:36)
[2016-07-06] MEDS: HYDROmorphone 2 MG/1 ML VIAL IV PRN (22:41)
[2016-07-06] MEDS: LEVOFLOXACIN INJ 500 MG in PREMIX 1 EACH IV SCH (23:02)
[2016-07-07] MEDS: SODIUM CHLORIDE 0.45% 1,000 ML IV SCH ×2 (02:34→11:30)
[2016-07-07] MEDS: hydrALAZINE 20 MG/1 ML VIAL IV PRN ×2 (03:53→08:20)
[2016-07-07] MEDS: ONDANSETRON 4 MG/2 ML VIAL IV PRN ×3 (03:53→21:41)
[2016-07-07 07:50] LABS: Calcium 7.8 MG/DL (8.5-10.1); Osmolality,Calculated 293.6 MOS/KG (273-304); Potassium 3.7 MMOL/L (3.5-5.1)
[2016-07-07] MEDS: INSULIN REGULAR 100 UNIT/ML SUBCUT SCH ×4 (08:18→21:45)
[2016-07-07] MEDS: PANTOPRAZOLE 40 MG VIAL IV SCH ×2 (08:19→21:41)
[2016-07-07] MEDS: INSULIN NPH/REGULAR 70/30 100 UNIT/ML SUBCUT SCH ×2 (08:19→17:58)
[2016-07-07] MEDS: LISINOPRIL 20 MG TABLET PO SCH (08:20)
[2016-07-07] MEDS: METOCLOPRAMIDE 10 MG TABLET PO SCH ×4 (08:20→21:44)
[2016-07-07] MEDS: POTASSIUM CHLORIDE RIDER 10 MEQ in PREMIX 1 EACH IV PRN ×2 (08:20→11:30)
[2016-07-07] MEDS ORDERED: LABETALOL 20 MG/4 ML SYRINGE IV ONE (09:27)
[2016-07-07] MEDS: METOPROLOL TARTRATE 50 MG TABLET PO SCH ×2 (09:39→21:44)
--- NOTE | 2016-07-07 09:43 | Event Note ---
Status post I&D. Afebrile. Wound is clean. No significant erythema. There is no purulence. Continue packing and antibiotic
--- NOTE | 2016-07-07 10:46 | Hospitalist Progress Note ---
Assessment and Plan (1) Abdominal wall abscess Status: Acute Assessment and plan: Stable status post incision and drainage day 2. She will continue on intravenous vancomycin and clindamycin. Current Visit: Yes (2) Diabetic ketoacidosis Status: Acute Assessment and plan: Her blood glucoses during the last 24 hours have been between 119-171. I will continue her present insulin regimen. Current Visit: Yes (3) Gastroparesis Status: Acute Assessment and plan: She is not experiencing nausea and vomiting today. She has been restarted on Reglan. Current Visit: Yes (4) Acute on chronic renal failure Status: Acute Assessment and plan: Her BUN and creatinine have decreased from 56 and 2.3 on admission to 13 and 1.0 today. I will continue infusion of intravenous normal saline. Current Visit: Yes (5) Encephalopathy Status: Acute Assessment and plan: She has returned to her normal baseline mental status.A CT scan of the head demonstrated no acute abnormalities. Current Visit: Yes (6) Atrial fibrillation with rapid ventricular response Status: Acute Assessment and plan: She is presently in normal sinus rhythm, on a combination of intravenous amiodarone, intravenous labetalol, and metoprolol. An echocardiogram demonstrated normal left ventricular systolic function with LVEF 55% and severe concentric LVH. Current Visit: Yes Hospitalist: Subjective Interval history: Ms. Mckeon is a 48-year-old -[place] female with previously known history of type 1 diabetes mellitus and diabetic gastroparesis. She was hospitalized here 3 days ago with diabetic ketoacidosis, acute renal failure, and an abscess of the pubis. She has been treated with intravenous vancomycin and clindamycin. He underwent incision and drainage of the abscess 2 days ago. Her wound appears to be healing well. She has been changed from the intravenous regular insulin infusion protocol to sliding scale regular insulin coverage and glargine insulin. She has been experiencing frequent episodes of a tacky arrhythmia which appears to be atrial fibrillation with rapid ventricular response. She has been treated with intravenous amiodarone and labetalol. Her heart rate is returned to normal sinus rhythm at a rate of 80/ min at the present time. She underwent an echocardiogram demonstrating normal left ventricular systolic function with LVEF 55% and severe concentric LVH. She had been experiencing some nausea and vomiting which appears to have resolved. Exam - Constitutional Vitals: Period Temp Pulse Resp BP Sys/Malagon Pulse Ox Last 24 Hr 96.8 F-98.2 F 89-149 12-26 102-189/43-107 94-99 General appearance: no acute distress - Head Head exam: Present: normal inspection, normocephalic - Eye Eye exam: Present: EOMI Pupils: Present: MARCO - Neck Neck exam: Present: normal inspection - Respiratory Respiratory exam: Present: clear to auscultation bilaterally - Cardiovascular Cardiovascular exam: Present: regular rate and rhythm - GI/Abdominal GI/Abdominal exam: Present: normal bowel sounds, soft, other (Nontender with no palpable masses or hepatosplenomegaly.) - Extremities Exam Extremities exam: Present: normal inspection - Neurological Exam Neurological exam: Present: alert - Skin Skin exam: Present: normal color, warm, dry Results - Labs CBC & BMP: 07/06/16 05:52 07/07/16 06:57
[2016-07-07] MEDS: AMIODARONE INJ 450 MG in DEXTROSE 5% 241 ML IV SCH (11:11)
[2016-07-07] MEDS: ENOXAPARIN 80 MG/0.8 ML SYRINGE SUBCUT SCH ×2 (11:22→22:36)
[2016-07-07] MEDS: SODIUM HYPOCHLORITE 0.25% IRRIG 473 ML BOTTLE TOP SCH (17:47)
[2016-07-07] MEDS ORDERED: DILTIAZEM 30 MG TABLET PO SCH (19:20)
--- NOTE | 2016-07-07 19:30 | Cardiology Consult Note ---
Assessment and Plan - Time spent with patient Time spent with patient: Greater than 30 minutes (1) Atrial fibrillation with rapid ventricular response Status: Acute Assessment and plan: A. fib RVR is probably due to her hypertension, LVH, and untreated sleep apnea Plan/regulation: we will discontinue the IV amiodarone when out We will give a trial of rate controlling medicines, metoprolol 50 mg p.o. twice daily is good. Add a low-dose of Cardizem, 30 mg p.o. 4 times daily If she has recurrence of arrhythmia, consider consideration of antiarrhythmic drug such as sotalol could be made. Not for now as she is not failed rate control meds We will not anticoagulate at this point, but we could reconsider it if she has significant more episodes of A. fib Consult Dr. Adams on Saturday regarding new option of treatment of her sleep apnea. She is willing to try new technology Thank you for allowing me to participate in this patient's care Current Visit: Yes (2) Obstructive sleep apnea Status: Acute Current Visit: Yes (3) Intolerance to BiPAP/CPAP Status: Acute Current Visit: Yes (4) Left ventricular hypertrophy Status: Acute Current Visit: Yes (5) Refusal of blood transfusions as patient is Mosque Status: Acute Current Visit: Yes (6) Abdominal wall abscess Status: Acute Current Visit: Yes (7) Abscess of pubic region Status: Acute Current Visit: Yes (8) Diabetic ketoacidosis Status: Acute Current Visit: Yes (9) Encephalopathy Status: Acute Current Visit: Yes (10) Gastroparesis Status: Acute Current Visit: Yes (11) Morbid obesity Status: Chronic Current Visit: No (12) Type 2 diabetes mellitus Status: Chronic Current Visit: No History of Present Illness - Data of Consult Patient: new to practice Consult date: 07/07/16 Requesting Physician: Olaf Dooley Primary care physician: Isaias Méndez - Consult Narrative Reason for consult: Evaluate and treat atrial fibrillation History of present illness: Ms. Mckeon is a 56 year old female PCP: Dr. Isaias Méndez Nutrition Partner: None known- to be Dr. johnson 56-year-old woman. She does not have a known history of arrhythmia or age fibrillation. She came in for pubic area abscess and it was drained. She then began having A. fib RVR. She is treated with IV amiodarone, oral metoprolol, and I think some i v Cardizem. She converted back to sinus rhythm. An echo was done. It revealed severe LVH, normal LVEF. Her potassium slightly low at 3.7. She has had no chest pain. No orthopnea, PND, edema, palpitations, syncope, cough wheezing or phlegm. Past medical history: has a history of sleep apnea-stopped CPAP, intolerant Overweight Diabetes Hypertension Chads vas score equals 3 Does not smoke cigarettes or drink alcohol There is a family history of coronary disease and diabetes SPH: Mosque Review of systems is negative except as mentioned in HPI. CC: Olaf Dooley - Home Medications and Allergies Home Medications: Home Medications Medication Instructions Recorded Confirmed Type Lisinopril 40 mg PO DAILY 09/24/14 07/05/16 History Metoclopramide Tab [Reglan Tab] 10 mg PO QID 09/24/14 07/05/16 History Omeprazole 20 mg PO DAILY 09/24/14 07/05/16 History Dapagliflozin/Metformin HCl 1 tablet PO DAILY 07/05/16 07/05/16 History [Xigduo Xr 5 mg-1,000 mg Tablet] Allergies/Adverse Reactions: Allergies Allergy/AdvReac Type Severity Reaction Status Date / Time acetaminophen [From Lortab] Allergy Severe Vomiting Verified 07/04/16 13:23 hydrocodone [From Lortab] Allergy Severe Vomiting Verified 07/04/16 13:23 Penicillins Allergy Severe RASH Verified 07/04/16 13:23 adhesive Allergy Unknown Unknown/Unable Verified 07/04/16 13:23 to obtain 12 point system: reviewed and no additional remarkable complaints except as stated (A 12 point review of systems is negative except for as mentioned in HPI. ) Medical,Surgical,& Family Hx - Medical History Cardio: History of: Hypertension HEENT: History of: Eye Problem, Glaucoma Endocrine: History of: Diabetes Mellitus (IDDM), Diabetes Mellitus (NIDDM) Respiratory: History of: Obstructive Sleep Apnea Gastrointestinal: History of: GERD, GI Problems (GASTROPARESIS) Other: History of: MRSA - Surgical History HEENT Surgeries: Surgical HX of: Eye Surgery (CATARACT SURGERY) Abdominal Surgeries: Surgical HX of: Cholecystectomy Reproductive Surgeries: Surgical HX of;: Breast Surgery (BX X2), Hysterectomy - Family History Family History: Reports;: Family Diabetes (MOM), Family Heart Disease (DAD), Family Hypertension (MOM), Family Psychiatric Problems (MOM), Family Stroke (MOM ) - Social History Smoking Status: Never smoker Frequency of Alcohol Use: None Type of Drug Use: None Physical Examination Vital Signs Temp Pulse Resp BP Pulse Ox 98.0 F 108 H 20 104/62 100 07/04/16 13:10 07/04/16 13:10 07/04/16 13:10 07/04/16 13:10 07/04/16 13:10 Other: HEENT: Pupils equal, reactive to light and accommodation Neck: NoJVD or bruit Lungs clear to auscultation Heart: Regular rhythm rate with normal S1 and S2. Apical S4, 2/6 systolic ejection murmur along left lower sternal border. Abdomen: No hepatosplenomegaly Spine/extremities: No clubbing, cyanosis, or edema Neuro: Nonfocal Psych: No depression or anxiety Overweight Result/EKG - Labs CBC & BMP: 07/06/16 05:52 07/07/16 06:57 Lab Results: I have reviewed the past 24 hour labs Labs: Laboratory Results - last 24 hr 07/06/16 07/06/16 07/07/16 19:05 19:49 06:57 Sodium 146 H Potassium 3.7 Chloride 116 H Carbon Dioxide 22 Anion Gap 11.7 BUN 13 Creatinine 1.00 GFR Calculation 96 BUN/Creatinine Ratio 13.00 Glucose 170 H POC Glucose 119 H Calculated Osmolality 293.6 Calcium 7.8 L Vancomycin Trough 7.8 L 07/07/16 07/07/16 07/07/16 07:58 11:50 16:08 Sodium Potassium Chloride Carbon Dioxide Anion Gap BUN Creatinine GFR Calculation BUN/Creatinine Ratio Glucose POC Glucose 171 H 168 H 150 H Calculated Osmolality Calcium Vancomycin Trough - Diagnostic Findings Procedure: Chest x-ray: report reviewed by me - EKG EKG results: interpreted by me
[2016-07-07] MEDS: VANCOMYCIN INJ 1,500 MG in SODIUM CHLORIDE 0.9% 500 ML IV SCH (20:06)
[2016-07-07] MEDS: LEVOFLOXACIN INJ 500 MG in PREMIX 1 EACH IV SCH (22:35)
[2016-07-08] MEDS: HYDROmorphone 2 MG/1 ML VIAL IV PRN (00:13)
[2016-07-08] MEDS: SODIUM CHLORIDE 0.45% 1,000 ML IV SCH ×5 (00:14→20:31)
[2016-07-08] MEDS: AMIODARONE INJ 450 MG in DEXTROSE 5% 241 ML IV SCH ×2 (01:45→16:58)
[2016-07-08] MEDS: hydrALAZINE 20 MG/1 ML VIAL IV PRN (04:40)
[2016-07-08 06:40] LABS: Basophils # 0.1 10*3/uL (0.0-0.2); Basophils % 0.5 % (0.0-0.8); Eosinophils # 0.2 10*3/uL (0.0-0.87); Eosinophils % 1.4 % (0.00-10.9); Hematocrit 35.7 VOL% (35.7-47.0); Hemoglobin 12.1 GM/DL (12.0-16.0); Immature Granulocytes % 1.5 %; Immature Granulocytes Absolute 0.16 #; Lymphocytes # 2.1 10*3/uL (1.4-4.0); Lymphocytes % 19.9 % (21.3-54.2); Mean Corpuscular HGB Conc 33.9 GM/DL (32-36); Mean Corpuscular Hemoglobin 26 PG (27-34); Mean Corpuscular Volume 76.9 FL (87-102); Mean Platelet Volume 11.5 FL (9.6-12.0); Monocytes # 0.9 10*3/uL (0.11-0.8); Monocytes % 8.1 % (1.7-12.7); NRBC # 0.03 10*3/uL; Neutrophils # 7.2 10*3/uL (1.4-7.4); Neutrophils % 68.6 % (38.7-73.9); Platelet Count 140 T/CUMM (130-400); Red Blood Count 4.64 MC/CUMM (3.8-5.5); Red Cell Distribution Width 14.3 % (9.3-17.3); White Blood Count 10.5 T/CUMM (4-12)
[2016-07-08 06:45] LABS: Free T4 (Free Thyroxine) 1.27 NG/DL (0.76-1.46); Magnesium 1.8 MG/DL (1.8-2.4); Thyroid Stimulating Hormone 0.741 uIU/ml (0.358-3.74)
[2016-07-08 07:06] LABS: Hypochromasia 1+; Platelet Estimate Normal
[2016-07-08 07:37] LABS: Calcium 7.9 MG/DL (8.5-10.1); Osmolality,Calculated 285.8 MOS/KG (273-304); Potassium 3.7 MMOL/L (3.5-5.1)
--- NOTE | 2016-07-08 07:37 | EKG Report ---
Stationary ECG Study [facility] Test Date: 07/08/2016 7:36:55 AM Pat Name: STEPHEN SOLITARIO Department: Room: 105 Gender: F Tool Design Draftsperson: CLAUDIA : 1960 Requested by: Martinez Vargas Order Number: [id number] Reading MD: ERIK CASON Intervals [place] Rate: 92 P: 71 IN: 130 QRS: 28 QRSD: 74 T: 34 QT: 352 QTc: 402 Interpretive Statements SINUS RHYTHM LOW QRS VOLTAGE IN PRECORDIAL LEADS ANTEROSEPTAL MYOCARDIAL INFARCTION, OF INDETERMINATE AGE Electronically Signed On 07-09-16 08:53:49 CDT by ERIK CASON [email or web address]
[2016-07-08] MEDS: ONDANSETRON 4 MG/2 ML VIAL IV PRN (08:33)
[2016-07-08] MEDS: INSULIN NPH/REGULAR 70/30 100 UNIT/ML SUBCUT SCH ×2 (09:33→16:58)
[2016-07-08] MEDS: INSULIN REGULAR 100 UNIT/ML SUBCUT SCH ×4 (09:33→20:28)
[2016-07-08] MEDS: PANTOPRAZOLE 40 MG VIAL IV SCH ×2 (09:33→20:28)
[2016-07-08] MEDS: DILTIAZEM 60 MG TABLET PO SCH ×4 (09:34→20:28)
[2016-07-08] MEDS: METOCLOPRAMIDE 10 MG TABLET PO SCH ×4 (09:34→20:28)
[2016-07-08] MEDS: METOPROLOL TARTRATE 50 MG TABLET PO SCH ×2 (09:34→20:28)
[2016-07-08] MEDS: LISINOPRIL 20 MG TABLET PO SCH (09:34)
--- NOTE | 2016-07-08 09:54 | Event Note ---
Wound clean. No erythema or cellulitis. Continue local wound care and antibiotics
--- NOTE | 2016-07-08 11:08 | Cardiology Progress Note ---
Assessment and Plan (1) Atrial fibrillation with rapid ventricular response Status: Acute Assessment and plan: A. fib RVR is probably due to her hypertension, LVH, and untreated sleep apnea Plan/regulation: we will discontinue the IV amiodarone when out We will give a trial of rate controlling medicines, metoprolol 50 mg p.o. twice daily is good. Add a low-dose of Cardizem, 30 mg p.o. 4 times daily If she has recurrence of arrhythmia, consider consideration of antiarrhythmic drug such as sotalol could be made. Not for now as she is not failed rate control meds We will not anticoagulate at this point, but we could reconsider it if she has significant more episodes of A. fib Consult Dr. Adams on Saturday regarding new option of treatment of her sleep apnea. She is willing to try new technology Thank you for allowing me to participate in this patient's care 07/08/16: Assessment/plan/recommendation: May be had a brief episode of atrial fib. At this point she is not failed rate control medicines, as it was just begun. Will increase the Cardizem to 60 mg p.o. every 6 hours. Will consult physical therapy to have her ambulate. We are giving her some extra magnesium and potassium per protocol. I conferred care with her nurse. I discussed our overall plan with the patient. Dr. Adams is to see the patient tomorrow. Current Visit: Yes (2) Obstructive sleep apnea Status: Acute Current Visit: Yes (3) Intolerance to BiPAP/CPAP Status: Acute Current Visit: Yes (4) Left ventricular hypertrophy Status: Acute Current Visit: Yes (5) Refusal of blood transfusions as patient is Druze Status: Acute Current Visit: Yes (6) Abdominal wall abscess Status: Acute Current Visit: Yes (7) Abscess of pubic region Status: Acute Current Visit: Yes (8) Diabetic ketoacidosis Status: Acute Current Visit: Yes (9) Encephalopathy Status: Acute Current Visit: Yes (10) Gastroparesis Status: Acute Current Visit: Yes (11) Morbid obesity Status: Chronic Current Visit: No (12) Type 2 diabetes mellitus Status: Chronic Current Visit: No Cardiology - PN: Subj Interval history: No chest pain or shortness of breath. Per the nurses, as one episode of apparent atrial fibrillation. We do not have a documented on rhythm strips. Exam (Progress Note) - Constitutional Vitals: Period Temp Pulse Resp BP Sys/Malagon Pulse Ox Last 24 Hr 97.4 F-97.8 F 77-95 10-17 125-199/56-94 95-100 Exam: HEENT: Pupils equal, reactive to light and accommodation Neck: NoJVD or bruit Lungs clear to auscultation Heart: Regular rhythm rate with normal S1 and S2. Apical S4 Abdomen: No hepatosplenomegaly Spine/extremities: No clubbing, cyanosis, or edema Neuro: Nonfocal Psych: No depression or anxiety Result/EKG - Labs CBC & BMP: 07/08/16 05:44 07/08/16 05:44 Lab Results: I have reviewed the past 24 hour labs Labs: Laboratory Results - last 24 hr 07/07/16 07/07/16 07/07/16 11:50 16:08 18:48 WBC RBC Hgb Hct MCV MCH MCHC RDW Plt Count MPV Neut % (Auto) Lymph % (Auto) Bond % (Auto) Eos % (Auto) Baso % (Auto) Neut # (Auto) Lymph # (Auto) Bond # (Auto) Eos # (Auto) Baso # (Auto) Immature Gran % Nucleated RBC % Immature Gran # Nucleated RBCs # Platelet Estimate Hypochromasia Morphology Comment Sodium Potassium Chloride Carbon Dioxide Anion Gap BUN Creatinine GFR Calculation BUN/Creatinine Ratio Glucose POC Glucose 168 H 150 H Calculated Osmolality Calcium Magnesium Free T4 TSH 3rd Generation Vancomycin Trough 7.8 L 07/07/16 07/08/16 07/08/16 20:47 05:44 05:44 WBC 10.5 RBC 4.64 Hgb 12.1 Hct 35.7 MCV 76.9 L MCH 26 L MCHC 33.9 RDW 14.3 Plt Count 140 D MPV 11.5 Neut % (Auto) 68.6 Lymph % (Auto) 19.9 L Bond % (Auto) 8.1 Eos % (Auto) 1.4 Baso % (Auto) 0.5 Neut # (Auto) 7.2 Lymph # (Auto) 2.1 Bond # (Auto) 0.9 H Eos # (Auto) 0.2 Baso # (Auto) 0.1 Immature Gran % 1.5 Nucleated RBC % 0.3 Immature Gran # 0.16 Nucleated RBCs # 0.03 Platelet Estimate Normal Hypochromasia 1+ Morphology Comment Sodium Potassium Chloride Carbon Dioxide Anion Gap BUN Creatinine GFR Calculation BUN/Creatinine Ratio Glucose POC Glucose 176 H Calculated Osmolality Calcium Magnesium 1.8 Free T4 1.27 TSH 3rd Generation 0.741 Vancomycin Trough 07/08/16 07/08/16 05:44 07:50 WBC RBC Hgb Hct MCV MCH MCHC RDW Plt Count MPV Neut % (Auto) Lymph % (Auto) Bond % (Auto) Eos % (Auto) Baso % (Auto) Neut # (Auto) Lymph # (Auto) Bond # (Auto) Eos # (Auto) Baso # (Auto) Immature Gran % Nucleated RBC % Immature Gran # Nucleated RBCs # Platelet Estimate Hypochromasia Morphology Comment Sodium 144 Potassium 3.7 Chloride 113 H Carbon Dioxide 17 L Anion Gap 17.7 H BUN 8 Creatinine 0.80 GFR Calculation 126 BUN/Creatinine Ratio 10.00 Glucose 140 H POC Glucose 176 H Calculated Osmolality 285.8 Calcium 7.9 L Magnesium Free T4 TSH 3rd Generation Vancomycin Trough - EKG EKG results: interpreted by me
[2016-07-08] MEDS ORDERED: PHENOL 1.4% THROAT SPRAY 177 ML BOTTLE PO PRN (11:32)
--- NOTE | 2016-07-08 11:42 | Hospitalist Progress Note ---
Assessment and Plan (1) Abdominal wall abscess Status: Acute Assessment and plan: Stable status post incision and drainage day 3. She will continue on intravenous vancomycin and clindamycin. Current Visit: Yes (2) Diabetic ketoacidosis Status: Acute Assessment and plan: Resolved. Her blood glucoses for the last day have been between 150-176. I will continue her present insulin regimen. Current Visit: Yes (3) Gastroparesis Status: Acute Assessment and plan: She is not experiencing nausea and vomiting today. She has been restarted on Reglan. Current Visit: Yes (4) Acute on chronic renal failure Status: Acute Assessment and plan: Her BUN and creatinine have decreased from 56 and 2.3 on admission to 8 and 0.8 today. I will continue infusion of intravenous normal saline. Current Visit: Yes (5) Encephalopathy Status: Acute Assessment and plan: She has returned to her normal baseline mental status.A CT scan of the head demonstrated no acute abnormalities. Current Visit: Yes (6) Atrial fibrillation with rapid ventricular response Status: Acute Assessment and plan: She is presently in normal sinus rhythm, on a combination of intravenous amiodarone, metoprolol, and diltiazem. An echocardiogram demonstrated normal left ventricular systolic function with LVEF 55% and severe concentric LVH. She is being followed by Dr. Vargas of cardiology. Current Visit: Yes Hospitalist: Subjective Interval history: Ms. Mckeon is a 48-year-old -Swedish female with previously known history of type 1 diabetes mellitus and diabetic gastroparesis. She was hospitalized here 4 days ago with diabetic ketoacidosis, acute renal failure, and an abscess of the pubis. She has been treated with intravenous vancomycin and clindamycin. She underwent incision and drainage of the abscess 3 days ago. Wounds appears to be healing well. She is presently being treated with glargine insulin and regular insulin sliding scale coverage. She experienced paroxysmal atrial fibrillation with rapid ventricular response yesterday. She has been treated with intravenous amiodarone and oral metoprolol and diltiazem. She is presently in normal sinus rhythm. She underwent an echocardiogram demonstrating normal left ventricular systolic function with LVEF 55% and severe concentric LVH. She has been seen in consultation by Dr. Vargas of cardiology. Exam - Constitutional Vitals: Period Temp Pulse Resp BP Sys/Malagon Pulse Ox Last 24 Hr 97.4 F-97.8 F 77-95 10-17 125-199/56-94 95-100 General appearance: no acute distress - Head Head exam: Present: normal inspection, normocephalic - Eye Eye exam: Present: EOMI Pupils: Present: MARCO - Neck Neck exam: Present: normal inspection - Respiratory Respiratory exam: Present: clear to auscultation bilaterally - Cardiovascular Cardiovascular exam: Present: regular rate and rhythm - GI/Abdominal GI/Abdominal exam: Present: normal bowel sounds, soft, other (Well-healing incision of pubis.) - Extremities Exam Extremities exam: Present: normal inspection - Neurological Exam Neurological exam: Present: alert, oriented X3 - Psychiatric Psychiatric exam: Present: normal affect, normal mood - Skin Skin exam: Present: normal color, warm, dry Results - Labs CBC & BMP: 07/08/16 05:44 07/08/16 05:44
[2016-07-08] MEDS: ENOXAPARIN 80 MG/0.8 ML SYRINGE SUBCUT SCH ×2 (12:21→22:49)
[2016-07-08] MEDS: SODIUM HYPOCHLORITE 0.25% IRRIG 473 ML BOTTLE TOP SCH (14:40)
[2016-07-08] MEDS: POTASSIUM CHLORIDE RIDER 10 MEQ in PREMIX 1 EACH IV PRN (14:53)
[2016-07-08] MEDS: VANCOMYCIN INJ 1,500 MG in SODIUM CHLORIDE 0.9% 500 ML IV SCH (16:57)
[2016-07-08 17:12] LABS: Apearance,Urine CLOUDY (Clear); Bacteria,Urine Many /HPF (Few); Bilirubin,Urine Negative (Negative); Blood, Urine Large mg/dL (Negative); Glucose,Urine (UA) 150 mg/dL (Negative); Ketones,Urine Negative (Negative); Mucus,Urine Few /LPF (Occasional); Nitrite,Urine Negative (Negative); Protein,Urine 100 MG/DL; RBC,Urine 74 /HPF (0-4); Squamous Epithelial Cell,Urine Occasional /HPF (0-10); Urine Color Yellow (Yellow); Urine Specific Gravity 1.006 (1.001-1.035); Urine Urobilinogen < 2.0 EU/DL (0.2-1.0); WBC,Urine 536 /HPF (0-6)
[2016-07-08] MEDS: LEVOFLOXACIN INJ 500 MG in PREMIX 1 EACH IV SCH (20:27)
[2016-07-09] MEDS: SODIUM CHLORIDE 0.45% 1,000 ML IV SCH ×2 (00:27→07:16)
[2016-07-09 04:55] LABS: Basophils # 0.1 10*3/uL (0.0-0.2); Basophils % 0.4 % (0.0-0.8); Eosinophils # 0.2 10*3/uL (0.0-0.87); Eosinophils % 1.8 % (0.00-10.9); Hematocrit 33.8 VOL% (35.7-47.0); Hemoglobin 11.3 GM/DL (12.0-16.0); Immature Granulocytes % 1.5 %; Lymphocytes # 2.6 10*3/uL (1.4-4.0); Lymphocytes % 19.1 % (21.3-54.2); Mean Corpuscular HGB Conc 33.4 GM/DL (32-36); Mean Corpuscular Hemoglobin 26 PG (27-34); Mean Corpuscular Volume 77.2 FL (87-102); Mean Platelet Volume 10.2 FL (9.6-12.0); Monocytes # 1.2 10*3/uL (0.11-0.8); Monocytes % 8.7 % (1.7-12.7); NRBC # 0.04 10*3/uL; Neutrophils # 9.3 10*3/uL (1.4-7.4); Neutrophils % 68.5 % (38.7-73.9); Platelet Count 227 T/CUMM (130-400); Red Blood Count 4.38 MC/CUMM (3.8-5.5); Red Cell Distribution Width 13.7 % (9.3-17.3); White Blood Count 13.6 T/CUMM (4-12)
[2016-07-09 05:24] LABS: Calcium 7.4 MG/DL (8.5-10.1); Osmolality,Calculated 287.1 MOS/KG (273-304); Potassium 3.4 MMOL/L (3.5-5.1)
[2016-07-09] MEDS: POTASSIUM CHLORIDE RIDER 10 MEQ in PREMIX 1 EACH IV PRN ×3 (05:59→14:01)
--- NOTE | 2016-07-09 07:50 | EKG Report ---
Stationary ECG Study [facility] Test Date: 07/09/2016 7:50:11 AM Pat Name: STEPHEN SOLITARIO Department: Room: 281 Gender: F [employer]: JUAN : 1960 Requested by: Martinez Vargas Order Number: [id number] Reading MD: ERIK CASON Intervals [place] Rate: 83 P: 35 GA: 112 QRS: 39 QRSD: 80 T: 0 QT: 359 QTc: 399 Interpretive Statements SINUS RHYTHM WITH SHORT GA INTERVAL LOW QRS VOLTAGE IN PRECORDIAL LEADS SEPTAL MYOCARDIAL INFARCTION, OF INDETERMINATE AGE Electronically Signed On 07-09-16 09:01:32 CDT by ERIK CASON [email or web address]
--- NOTE | 2016-07-09 08:05 | General Surgery Progress Note ---
Assessment and Plan - Time spent with patient Time spent with patient: Less than 30 minutes (1) Abscess of pubic region Status: Acute Assessment and plan: Impression: 1. Abscess of the pubis 2. Diabetic ketoacidosis under control 3. Diabetes mellitus adult onset 4. Obesity Plan: Surgical debridement of abscess of the pubis 07/09/2016 Patient generally seems to be better glucoses about 200 and she is alert and oriented. Cultures noted from the wound bed and sensitivities are out for adjustment of her antibiotics. The wound generally looks fairly clean little bit moist and not sure that would not going to need to do these dressings twice a day on her. At this point it looks pretty good is going require some long- term wound care possibly home health to help her with this at some point. Current Visit: Yes Subjective Patient reports: Present: no new complaints, tolerating liquids well, afebrile Exam - Constitutional Vitals: Period Temp Pulse Resp BP Sys/Malagon Pulse Ox Last 24 Hr 97.1 F-98.8 F 75-101 12-21 137-158/57-72 95-100 General appearance: mild distress - Head Head exam: Present: normal inspection - ENT ENT exam: Present: normal exam - Neck Neck exam: Present: normal inspection - Respiratory Respiratory exam: Present: rales, rhonchi - Cardiovascular Cardiovascular exam: Present: RRR - GI/Abdominal GI/Abdominal exam: Present: hypoactive bowel sounds, soft, other (Left groin wound is fairly clean although it looks a little bit moist.) - Anus/Rectum Anus/Rectum: rectal mass - Extremities Exam Extremities exam: Present: normal inspection - Neurological Exam Neurological exam: Present: alert, oriented X3, CN II-XII intact - Skin Skin exam: Present: normal color, warm, dry Results - Labs CBC & BMP: 07/09/16 04:39 07/09/16 04:39 Lab Results: I have reviewed the past 24 hour labs
[2016-07-09] MEDS: PANTOPRAZOLE 40 MG VIAL IV SCH (08:35)
[2016-07-09] MEDS: ONDANSETRON 4 MG/2 ML VIAL IV PRN ×2 (08:36→12:21)
[2016-07-09] MEDS: INSULIN REGULAR 100 UNIT/ML SUBCUT SCH ×4 (08:36→21:59)
[2016-07-09] MEDS: INSULIN NPH/REGULAR 70/30 100 UNIT/ML SUBCUT SCH ×2 (08:36→17:15)
[2016-07-09] MEDS: DILTIAZEM 60 MG TABLET PO SCH ×4 (08:41→21:03)
[2016-07-09] MEDS: METOPROLOL TARTRATE 50 MG TABLET PO SCH ×2 (08:41→21:03)
[2016-07-09] MEDS: LISINOPRIL 20 MG TABLET PO SCH (08:41)
[2016-07-09] MEDS: METOCLOPRAMIDE 10 MG TABLET PO SCH ×4 (08:41→21:03)
[2016-07-09] MEDS: PANTOPRAZOLE 40 MG TABLET PO SCH (08:41)
[2016-07-09] MEDS: AMIODARONE INJ 450 MG in DEXTROSE 5% 241 ML IV SCH (08:42)
[2016-07-09] MEDS ORDERED: PNEUMOCOCCAL VACCINE (23 VALENT) 0.5 ML VIAL IM ONE (09:00)
[2016-07-09] MEDS: VANCOMYCIN INJ 1,500 MG in SODIUM CHLORIDE 0.9% 500 ML IV SCH (09:35)
[2016-07-09] MEDS: SODIUM HYPOCHLORITE 0.25% IRRIG 473 ML BOTTLE TOP SCH (09:36)
[2016-07-09] MEDS: ENOXAPARIN 80 MG/0.8 ML SYRINGE SUBCUT SCH (09:37)
--- NOTE | 2016-07-09 12:43 | Cardiology Progress Note ---
Assessment and Plan - Time spent with patient Time spent with patient: Greater than 30 minutes (1) Type 2 diabetes mellitus Status: Chronic Assessment and plan: See plan of care listed below Current Visit: No (2) Morbid obesity Status: Chronic Assessment and plan: See plan of care listed below Current Visit: No (3) Gastroparesis Status: Chronic Assessment and plan: See plan of care listed below Current Visit: Yes (4) Abscess of pubic region Status: Acute Assessment and plan: See plan of care listed below Current Visit: Yes (5) Atrial fibrillation with rapid ventricular response Status: Resolved Assessment and plan: See plan of care listed below Current Visit: Yes (6) Obstructive sleep apnea Status: Chronic Assessment and plan: See plan of care listed below Current Visit: Yes (7) Left ventricular hypertrophy Status: Chronic Assessment and plan: See plan of care listed below Current Visit: Yes (8) Refusal of blood transfusions as patient is Yazidism Status: Chronic Assessment and plan: See plan of care listed below Current Visit: Yes Cardiology - PN: Subj Interval history: CARDIOLOGY: DR. VENTURA PCP: DR. MACKENZIE CHUA SUMMARY: 56-year-old female, admitted through the emergency department after experiencing atrial fibrillation with rapid ventricular response. She was treated with IV Amiodarone, oral Metoprolol and IV Cardizem. She converted back to normal sinus rhythm. She has remained in normal sinus rhythm. She denies chest pain, heaviness or tightness. She underwent echocardiogram which revealed the following: EF 55%, moderate to severe concentric left ventricular hypertrophy. Dr. Adams has been consulted for evaluation of sleep disorder. Originally, she sought advice in the emergency department for a pubic abscess. She is currently being treated with vancomycin after surgical debridement of abscess of the pubis. She will require long-term wound care at discharge JULY 09, 2016: Over the weekend, she is remained in normal sinus rhythm. She denies chest pain, heaviness or tightness. She is to be evaluated by Dr. Adams today. She is also being treated for a urinary tract infection. Labs today reveal hypokalemia. Will replace accordingly. Will also draw a magnesium level. At this point she is receiving the following: Diltiazem 60 mg orally 4 times daily, metoprolol tartrate 50 mg orally twice daily. She is taking an BEV inhibitor as well. She is also on Lovenox 80 mg subcu every 12 hours. Will check a fasting lipid profile in the morning. Systolic blood pressure averaging 130s-140s. This evening, I will stop her short acting diltiazem and in the morning will start a higher dose long-acting diltiazem. Will further discuss with Dr. Wheatley the need for possible formal anticoagulation. CHADVASC SCORE 3. ASSESSMENT/PLAN: 1. ATRIAL FIBRILLATION WITH RVR -currently in normal sinus rhythm. No proximal systems of A. fib over the weekend. 2. HYPERTENSION -adjusting meds. See plan above 3. UNKNOWN LIPID STATUS -FLP in the morning 4. DIABETES - continue current plan of care 5. GASTROPARESIS - continue current plan of care 6. HYPOKALEMIA - currently receiving replacement 7. SLEEP DISORDER - Dr. Adams consulted 8. LVH - severe. Good BP control recommended. 9. PUBIC ABCESS - being treated by Dr. Vail Exam (Progress Note) - Constitutional Vitals: Period Temp Pulse Resp BP Sys/Malagon Pulse Ox Last 24 Hr 97.1 F-98.8 F 75-81 18-20 125-158/68-72 95-99 Exam: General: [Appears well with no apparent distress.] [Pleasant and cooperative. ] [Appears comfortable.] HEENT: [PERRL, normocephalic, atraumatic. Mucous membranes moist. No jaundice noted. Conjunctiva moist and clear, sclerae anicteric] Neck: No JVD/HJR, no thyromegaly or lymphadenopathy noted. No carotid bruit appreciated Cardiac: [Regular rate and rhythm.] [No obvious murmur rub or gallop.] Lungs: [Clear to auscultation without accessory muscle use to assist the respiratory pattern.] Not requiring oxygen Abdomen: Soft, bowel sounds normoactive. Nontender and nondistended. No abdominal bruit or thrill noted. No masses noted. Musculoskeletal: No fluid collection. Decreased range of motion is noted. Extremities: No clubbing, cyanosis noted. [ No edema noted.] Upper extremity pulses 2+. Lower extremity pulses 2+. Capillary refill less than 3 seconds. Skin: No unusual lesions or rashes. No skin breakdown appreciated. Neuro: Awake, alert and oriented 3. Moves all extremities well without hemiparesis or paralysis. No essential tremor is appreciated. Result/EKG - Labs CBC & BMP: 05/01/17 04:39 07/09/16 04:39 Lab Results: I have reviewed the past 24 hour labs Labs: Laboratory Results - last 24 hr 07/08/16 07/08/16 07/08/16 14:00 15:34 19:57 WBC RBC Hgb Hct MCV MCH MCHC RDW Plt Count MPV Neut % (Auto) Lymph % (Auto) Ransom % (Auto) Eos % (Auto) Baso % (Auto) Neut # (Auto) Lymph # (Auto) Ransom # (Auto) Eos # (Auto) Baso # (Auto) Immature Gran % Nucleated RBC % Immature Gran # Nucleated RBCs # Sodium Potassium Chloride Carbon Dioxide Anion Gap BUN Creatinine GFR Calculation BUN/Creatinine Ratio Glucose POC Glucose 81 227 H Calculated Osmolality Calcium Urine Color Yellow Urine Appearance Cloudy Urine pH 6.0 Ur Specific [place] 1.006 Urine Protein 100 Urine Glucose (UA) 150 Urine Ketones Negative Urine Blood Large Urine Nitrate Negative Urine Bilirubin Negative Urine Urobilinogen < 2.0 H Urine Leukocytes Large H Urine RBC 74 Urine WBC 536 Urine WBC Clumps Many Ur Squamous Epith Cells Occasional Urine Bacteria Many Urine Mucus Few Ur Yeast w Hyphae Occasional Urine Yeast (Budding) Many Ur Culture Indicated? Results to follow 07/09/16 07/09/16 07/09/16 04:39 04:39 08:04 WBC 13.6 H RBC 4.38 Hgb 11.3 L Hct 33.8 L MCV 77.2 L MCH 26 L MCHC 33.4 RDW 13.7 Plt Count 227 D MPV 10.2 Neut % (Auto) 68.5 Lymph % (Auto) 19.1 L Ransom % (Auto) 8.7 Eos % (Auto) 1.8 Baso % (Auto) 0.4 Neut # (Auto) 9.3 H Lymph # (Auto) 2.6 Ransom # (Auto) 1.2 H Eos # (Auto) 0.2 Baso # (Auto) 0.1 Immature Gran % 1.5 Nucleated RBC % 0.3 Immature Gran # 0.20 Nucleated RBCs # 0.04 Sodium 142 Potassium 3.4 L Chloride 108 H Carbon Dioxide 25 Anion Gap 12.4 BUN 8 Creatinine 1.00 GFR Calculation 96 BUN/Creatinine Ratio 8.00 Glucose 222 H POC Glucose 251 H Calculated Osmolality 287.1 Calcium 7.4 L Urine Color Urine Appearance Urine pH Ur Specific [place] Urine Protein Urine Glucose (UA) Urine Ketones Urine Blood Urine Nitrate Urine Bilirubin Urine Urobilinogen Urine Leukocytes Urine RBC Urine WBC Urine WBC Clumps Ur Squamous Epith Cells Urine Bacteria Urine Mucus Ur Yeast w Hyphae Urine Yeast (Budding) Ur Culture Indicated? 07/09/16 11:24 WBC RBC Hgb Hct MCV MCH MCHC RDW Plt Count MPV Neut % (Auto) Lymph % (Auto) Ransom % (Auto) Eos % (Auto) Baso % (Auto) Neut # (Auto) Lymph # (Auto) Ransom # (Auto) Eos # (Auto) Baso # (Auto) Immature Gran % Nucleated RBC % Immature Gran # Nucleated RBCs # Sodium Potassium Chloride Carbon Dioxide Anion Gap BUN Creatinine GFR Calculation BUN/Creatinine Ratio Glucose POC Glucose 214 H Calculated Osmolality Calcium Urine Color Urine Appearance Urine pH Ur Specific [place] Urine Protein Urine Glucose (UA) Urine Ketones Urine Blood Urine Nitrate Urine Bilirubin Urine Urobilinogen Urine Leukocytes Urine RBC Urine WBC Urine WBC Clumps Ur Squamous Epith Cells Urine Bacteria Urine Mucus Ur Yeast w Hyphae Urine Yeast (Budding) Ur Culture Indicated? - Diagnostic Findings Procedure: Ultrasound: report reviewed by me (Echo) - EKG EKG results: interpreted by me EKG shows: sinus rhythm
--- NOTE | 2016-07-09 12:55 | Sleep Medicine Consult ---
Assessment and Plan (1) Obstructive sleep apnea Status: Chronic Assessment and plan: This patient has a history of mild obstructive sleep apnea and is now and with atrial fibrillation with rapid ventricular response. We will see how she can do with auto titration CPAP after being refitted by sleep techs with a CPAP mask. We will schedule her for follow-up in the sleep lab after discharge. I stressed the importance of compliance with CPAP and follow-up in the sleep lab. Current Visit: Yes (2) Type 2 diabetes mellitus Status: Chronic Assessment and plan: The prevalence rate for obstructive sleep apnea in patients with type 2 diabetes can be as high as 86%. Those patients with moderate to severe obstructive sleep apnea are at a greater risk for diabetic nephropathy and neuropathy. Compliance with CPAP therapy for these patients can lead to improvement in glycemic control and improvement in insulin sensitivity. Current Visit: No (3) Atrial fibrillation with rapid ventricular response Status: Resolved Assessment and plan: The prevalence for obstructive sleep apnea patients with atrial fib ranges from 30-80%. Treatment of the underlying sleep apnea can reduce recurrence of atrial fib almost 50%. Current Visit: Yes History of Present Illness Chief complaint: Obstructive sleep apnea History of present illness: Ms. Mckeon is a 56 year old female who was diagnosed with obstructive sleep apnea in 2004 with an AHI of 13.8, consistent with mild obstructive sleep apnea. She had O2 desaturation to lows of 84%. She was treated with CPAP of 8 cm after titration but had difficulty tolerating CPAP and eventually quit utilizing it and was lost to follow-up from the sleep clinic. She does continue to have problems with disrupted sleep, staying in bed from about 10 PM to 10 AM and awakening several times to urinate. She is bothered by fatigue and sleepiness during the day. She does continue to snore and will awaken from sleep short of breath. She is uncertain of whether her weight has changed significantly from the time of her original diagnosis. Home Medications Medication Instructions Recorded Confirmed Type Lisinopril 40 mg PO DAILY 09/24/14 07/05/16 History Metoclopramide Tab [Reglan Tab] 10 mg PO QID 09/24/14 07/05/16 History Omeprazole 20 mg PO DAILY 09/24/14 07/05/16 History Dapagliflozin/Metformin HCl 1 tablet PO DAILY 07/05/16 07/05/16 History [Xigduo Xr 5 mg-1,000 mg Tablet] Allergies Allergy/AdvReac Type Severity Reaction Status Date / Time acetaminophen [From Lortab] Allergy Severe Vomiting Verified 07/04/16 13:23 hydrocodone [From Lortab] Allergy Severe Vomiting Verified 07/04/16 13:23 Penicillins Allergy Severe RASH Verified 07/04/16 13:23 adhesive Allergy Unknown Unknown/Unable Verified 07/04/16 13:23 to obtain Review of systems: Otherwise unremarkable from a sleep standpoint. Exam (Pulmonay) H&P - Constitutional Vitals: Period Temp Pulse Resp BP Sys/Malagon Pulse Ox Last 24 Hr 97.1 F-98.8 F 75-81 18-20 125-158/68-72 95-99 Exam: She is alert and responsive in no acute distress. She is ambulatory. Pupils equal round reactive to light and accommodation. Extraocular movements intact. Oropharynx with a class III Mallampati exam. Neck supple without adenopathy or thyromegaly. No supraclavicular adenopathy is noted. Chest with symmetrical breath sounds without focal wheeze, rhonchi, or rales. Cardiac exam reveals a regular rhythm without murmur or gallop. Abdomen obese nontender without palpable hepatosplenomegaly or mass. Extremities with trace edema. Neurologically, she is grossly intact. She moves all extremities with good strength and ambulated with a normal gait. Medical,Surgical,& Family Hx - Medical History Cardio: History of: Hypertension HEENT: History of: Eye Problem, Glaucoma Endocrine: History of: Diabetes Mellitus (IDDM), Diabetes Mellitus (NIDDM) Respiratory: History of: Obstructive Sleep Apnea Gastrointestinal: History of: GERD, GI Problems (GASTROPARESIS) Other: History of: MRSA - Surgical History HEENT Surgeries: Surgical HX of: Eye Surgery (CATARACT SURGERY) Abdominal Surgeries: Surgical HX of: Cholecystectomy Reproductive Surgeries: Surgical HX of;: Breast Surgery (BX X2), Hysterectomy - Family History Family History: Reports;: Family Diabetes (MOM), Family Heart Disease (DAD), Family Hypertension (MOM), Family Psychiatric Problems (MOM), Family Stroke (MOM ) - Social History Smoking Status: Never smoker Frequency of Alcohol Use: None Type of Drug Use: None Lives With:: Sibling Results - Labs CBC & BMP: 07/09/16 04:39 07/09/16 04:39 Lab Results: I have reviewed the past 24 hour labs Labs: TSH was within normal limits.
[2016-07-09] MEDS: BACITRACIN OINT 0.9 GM PACK TOP SCH (13:28)
--- NOTE | 2016-07-09 13:43 | Hospitalist Progress Note ---
Assessment and Plan (1) Type 2 diabetes mellitus Status: Chronic Assessment and plan: 1)DKA- resolved. She is on 70/30 for a total of 90 units a day with SSI also. She tells me her doctor stopped her insulin a month ago to see if she needed it. Her kidney function is back to normal and her acidosis has resolved. She is tolerating a diabetic diet so I will stop her IVF. She will need to continue treatment of her diabetes with insulin. The diabetes educators have seen her. 2)OLIMPIA- resolved 3)rapid afib- now NSR, on oral dilt, changing to long acting in the morning. on Lovenox at 1mg/kg, cards to determine whether she needs to continue anticoagulation at discharge. EF 55%, LVH 4)abscess- on levaquin and vanc, local care per Dr Vail. home soon on oral antibiotics. She had staph hominis in 1/2 BCx, strep adn klebsiella in her abscess culture. 5)SORAYA- Dr Adams to see. 6)dispo- she will go home with her sister where she has been living. Current Visit: No (2) Proliferative diabetic retinopathy Status: Chronic Current Visit: No (3) Morbid obesity Status: Chronic Current Visit: No (4) Diabetic ketoacidosis Status: Acute Current Visit: Yes (5) Abdominal wall abscess Status: Acute Current Visit: Yes (6) Atrial fibrillation with rapid ventricular response Status: Resolved Current Visit: Yes (7) Obstructive sleep apnea Status: Chronic Current Visit: Yes Hospitalist: Subjective Interval history: Ms Mckeon feels ok this morning. She has not had pain or shortness of breath or palpitations. She has had a mild headache, denies focal neuro complaints, for a few days, but is getting better. She is receiving IV antibiotics and packing her abscess. She has been out of bed and would like to take a shower. Exam - Constitutional Vitals: Period Temp Pulse Resp BP Sys/Malagon Pulse Ox Last 24 Hr 97.1 F-98.8 F 75-81 18-20 125-158/68-72 95-99 General appearance: no acute distress, morbidly obese - Head Head exam: Present: normocephalic, atraumatic - Eye Eye exam: Present: EOMI. Absent: scleral icterus Pupils: Present: MARCO - Respiratory Respiratory exam: Present: clear to auscultation bilaterally - Cardiovascular Cardiovascular exam: Present: regular rate and rhythm - GI/Abdominal GI/Abdominal exam: Present: normal bowel sounds, soft. Absent: tenderness - Extremities Exam Extremities exam: Absent: edema - Neurological Exam Neurological exam: Present: alert, oriented X3, CN II-XII intact. Absent: motor sensory deficit - Skin Skin exam: Present: other (multiple healed hyperpigmented lesions that look like skin picking- she says she has had bug bites. ) Results - Labs CBC & BMP: 07/09/16 04:39 07/09/16 04:39 Lab Results: I have reviewed the past 24 hour labs
[2016-07-09] MEDS ORDERED: POTASSIUM CHLORIDE 20 MEQ TABLET PO ONE (16:58)
[2016-07-09] MEDS: POTASSIUM CHLORIDE 20 MEQ TABLET PO SCH (17:16)
[2016-07-09] MEDS: ASCORBIC ACID 500 MG TABLET PO SCH (21:02)
[2016-07-09] MEDS: APIXABAN 5 MG TABLET PO SCH (21:03)
[2016-07-09] MEDS: LEVOFLOXACIN INJ 500 MG in PREMIX 1 EACH IV SCH (21:04)
[2016-07-10] MEDS: VANCOMYCIN INJ 1,500 MG in SODIUM CHLORIDE 0.9% 500 ML IV SCH (03:40)
[2016-07-10 04:26] LABS: Basophils # 0.1 10*3/uL (0.0-0.2); Basophils % 0.4 % (0.0-0.8); Eosinophils # 0.3 10*3/uL (0.0-0.87); Eosinophils % 2.3 % (0.00-10.9); Hematocrit 34.2 VOL% (35.7-47.0); Immature Granulocytes % 2.5 %; Immature Granulocytes Absolute 0.35 #; Lymphocytes % 20.9 % (21.3-54.2); Mean Corpuscular HGB Conc 32.2 GM/DL (32-36); Mean Corpuscular Hemoglobin 26 PG (27-34); Mean Corpuscular Volume 79.9 FL (87-102); Mean Platelet Volume 10.3 FL (9.6-12.0); Monocytes # 1.5 10*3/uL (0.11-0.8); Monocytes % 10.6 % (1.7-12.7); NRBC # 0.04 10*3/uL; Neutrophils % 63.3 % (38.7-73.9); Platelet Count 242 T/CUMM (130-400); Red Blood Count 4.28 MC/CUMM (3.8-5.5); White Blood Count 14.1 T/CUMM (4-12)
[2016-07-10 04:48] LABS: Calcium 7.9 MG/DL (8.5-10.1); Magnesium 1.9 MG/DL (1.8-2.4); Osmolality,Calculated 284.7 MOS/KG (273-304); Potassium 3.2 MMOL/L (3.5-5.1); Risk Ratio 4.27; VLDL CHOLESTEROL 25.6 MG/DL
[2016-07-10] MEDS: INSULIN REGULAR 100 UNIT/ML SUBCUT SCH ×2 (08:04→11:43)
[2016-07-10] MEDS: ONDANSETRON 4 MG/2 ML VIAL IV PRN (08:25)
[2016-07-10] MEDS: POTASSIUM CHLORIDE RIDER 10 MEQ in PREMIX 1 EACH IV PRN (08:25)
[2016-07-10] MEDS: METOPROLOL TARTRATE 50 MG TABLET PO SCH (08:26)
[2016-07-10] MEDS: METOCLOPRAMIDE 10 MG TABLET PO SCH ×2 (08:26→13:30)
[2016-07-10] MEDS: LISINOPRIL 20 MG TABLET PO SCH (08:26)
[2016-07-10] MEDS: INSULIN NPH/REGULAR 70/30 100 UNIT/ML SUBCUT SCH (08:27)
[2016-07-10] MEDS: POTASSIUM CHLORIDE 20 MEQ TABLET PO SCH (08:27)
[2016-07-10] MEDS: APIXABAN 5 MG TABLET PO SCH (08:27)
[2016-07-10] MEDS: ASCORBIC ACID 500 MG TABLET PO SCH (08:27)
[2016-07-10] MEDS: PANTOPRAZOLE 40 MG TABLET PO SCH (08:27)
[2016-07-10] MEDS ORDERED: DILTIAZEM CD 300 MG CAPSULE PO SCH (09:00)
[2016-07-10] MEDS ORDERED: POTASSIUM CHLORIDE 20 MEQ TABLET PO ONE (09:18)
--- NOTE | 2016-07-10 09:20 | General Surgery Progress Note ---
Assessment and Plan - Time spent with patient Time spent with patient: Less than 30 minutes (1) Abscess of pubic region Status: Acute Assessment and plan: 07/10/16 She is doing well status post I&D of left pubis abscess. This patient is responding well to local care and oral antibiotics. Okay from surgical standpoint to discharge home today. I have spoken with her regarding her local care, which she feels she is unable to handle at home but prefers going home with home health. Will speak with social security specialist about setting this up. Will modify her wound care so that she can more simply handle this on a twice daily fashion. She will need to continue at least 7-10 day course of Levaquin. We will plan to check her in the office in 2-3 weeks or as needed. 07/06/16 Stable post op I&D of pubic abscess. We'll begin dressing changes/ irrigations today. Continue empiric antibiotics until final cultures are available. Her DKA is responding. OK to move to the floor and begin teaching her how to manage this wound; she may need family support and/or Home Health. Current Visit: Yes Subjective Patient reports: Present: feels better, pain is less, tolerating a regular diet , other (Tolerating dressing changes but she says she cannot do this herself.). Absent: nausea, vomiting, shortness of breath Exam - Constitutional Vitals: Period Temp Pulse Resp BP Sys/Malagon Pulse Ox Last 24 Hr 97.1 F-99.5 F 71-80 18-20 125-189/63-85 95-100 General appearance: no acute distress, morbidly obese - Skin Skin exam: Present: other (Left pubis incision is clean and granulating. There is no new induration. There is no gross purulence.) Results - Labs CBC & BMP: 07/10/16 03:51 07/10/16 03:51 Lab Results: I have reviewed the past 24 hour labs (Micro reveals Group B strep , Klebsiella species, sensitive to Levaquin)
[2016-07-10] MEDS: SODIUM HYPOCHLORITE 0.25% IRRIG 473 ML BOTTLE TOP SCH (09:21)
[2016-07-10] MEDS: BACITRACIN OINT 0.9 GM PACK TOP SCH (09:21)
--- NOTE | 2016-07-10 09:50 | Discharge Summary ---
Hospital Course - Hospital Course Hospital Course: Ms. Mckeon is a 56-year-old -Swazi female with history of insulin- dependent diabetes, hypertension, and gastroparesis presenting to the ED on 07/04 in DKA. Patient was admitted to the ICU and DKA protocol was initiated. Patient was found to have a necrotic abscess on her pubis and Dr. Vail from surgery was consulted. She was taken to the OR on 07/05/2016 for excisional debridement of an abscessed cyst of the left side of the pubis. Patient went into A. fib with RVR and cardiology was consulted. Dr. Vargas felt this was from her hypertension, LVH, and untreated sleep apnea. Patient is now in normal sinus rhythm and has been started on Eliquis for stroke prevention. She will need to follow-up with Dr. Vargas in 2-[address] Gray was consulted and found that she was diagnosed with SORAYA in 2004 and treated with CPAP but she had difficulty tolerating this and quit utilizing it and was lost to follow-up. He tried an auto titration CPAP and had patient refitted by the sleep techs with a CPAP mask. He will have her follow-up with the sleep lab after discharge. Patient's blood sugars are now controlled, normal sinus rhythm , her wound is clean with no signs of infection. Patient will be discharged home on antibiotics and pain and nausea medicine with follow-up with Dr. Vail in 2-3 weeks. Patient will DC'd her home p.o. diabetes medicines and will add insulin to her regimen. She will need to follow-up with her PCP in 1 week. Patient's potassium is 3.2 today will send her home on oral potassium. Will check with Dr. Gray for home CPAP and follow-up in sleep lab. Patient will get home health for wound care as well as a Rollator walker and home health PT to assist her for her increased debility due to hospitalization. Discharge planning was coordinated with Dr. Regalado, Veda Aleman for cardiology, nursing staff, social media analyst, and patient. Complete discharge time including paperwork and care coordination took approximately 45 minutes. - Time spent with patient Time with patient DS: Greater than 30 minutes Diagnosis - Discharge Diagnosis (1) Debility Status: Resolved (2) Type 2 diabetes mellitus Status: Chronic (3) Morbid obesity Status: Chronic (4) Diabetic ketoacidosis Status: Resolved (5) Abscess of pubic region Status: Resolved (6) Atrial fibrillation with rapid ventricular response Status: Resolved (7) Obstructive sleep apnea Status: Chronic Specialty Discharge - Follow Up or Referrals Follow up with: [facility] [Other] - 1 Week (follow up DKA) Martinez Vargas MD [Physician] - (2-3 weeks. EKG at visit) Lino Vail MD [Physician] - 2 Weeks Isaias Méndez [Physician] - 1 Week (Labs: BMP, Mg, CBC) Discharge Plan - Discharge Data Disposition: Home Health Service Condition at Discharge: Stable Discharge Diet: diabetic diet Activity: ambulate only with your walker Hygiene: may shower Driving: other (no driving if taking pain meds) Contact your physician if you experience:: fever over 101, Nausea/Vomiting - Discharge Medications New Diltiazem Cd Cap [Cardizem CD] 360 mg PO DAILY #30 capsule Insulin NPH/Regular 70/30 [HumuLIN 70/30] 30 unit SUBCUT AC SUPPER 30 Days Insulin NPH/Regular 70/30 [HumuLIN 70/30] 60 unit SUBCUT AC BREAKFAST 30 Days Potassium Chloride Cap/Tab [K Dur] 20 meq PO DAILY #30 tablet Sodium Hypochlorite 0.25% Irr [Dakins 1/2 Strength 0.25% Soln] 1 applic TOP DAILY applic Apixaban [Eliquis] 5 mg PO BID #60 tablet Atorvastatin [Lipitor] 20 mg PO BEDTIME #30 tablet Metoprolol Tartrate Tab [Lopressor Tab] 50 mg PO BID #60 tablet Continue Metoclopramide Tab [Reglan Tab] 10 mg PO QID Lisinopril 40 mg PO DAILY Omeprazole 20 mg PO DAILY Levofloxacin Tab [Levaquin Tab] 500 mg PO DAILY #10 tablet Ondansetron Tab [Zofran Tab] 4 mg PO Q6H #14 tablet Discontinued Dapagliflozin/Metformin HCl [Xigduo Xr 5 mg-1,000 mg Tablet] 1 tablet PO DAILY - Follow Up or Referral Follow Up: [facility] [Other] - 1 Week (follow up DKA) Martinez Vargas MD [Physician] - (2-3 weeks. EKG at visit) Lino Vail MD [Physician] - 2 Weeks Isaias Méndez [Physician] - 1 Week (Labs: BMP, Mg, CBC) Kailyn Gray MD [Physician] - (call dr gray for follow up and make sure pt has everything CPAP for dc) - Forms/Instructions Exam - Constitutional Vitals: Period Temp Pulse Resp BP Sys/Malagon Pulse Ox Last 24 Hr 97.1 F-99.5 F 71-80 18-20 125-189/63-85 95-100 Exam: 56AAF, obese, NAD chest clear cv irreg irreg abd soft, obese, wound is clean ext mild edema Discharge Results Procedures and tests throughout hospitalization: Pending Orders 07/08/16 Urine Culture Routine 07/11/16 04:00 BMP w/ Mg [Basic Metabolic Panel w/Mg] IN AM CBC [Comp Blood Count Auto Diff] IN AM 07/12/16 04:00 BMP w/ Mg [Basic Metabolic Panel w/Mg] IN AM CBC [Comp Blood Count Auto Diff] IN AM 07/13/16 04:00 BMP w/ Mg [Basic Metabolic Panel w/Mg] IN AM CBC [Comp Blood Count Auto Diff] IN AM Labs on day of discharge: Labs from last 24 hours 07/10/16 07/10/16 07/10/16 07:24 03:51 03:51 WBC 14.1 H RBC 4.28 Hgb 11.0 L Hct 34.2 L MCV 79.9 L MCH 26 L MCHC 32.2 RDW 14.0 Plt Count 242 MPV 10.3 Neut % (Auto) 63.3 Lymph % (Auto) 20.9 L Rock % (Auto) 10.6 Eos % (Auto) 2.3 Baso % (Auto) 0.4 Neut # (Auto) 9.0 H Lymph # (Auto) 3.0 Rock # (Auto) 1.5 H Eos # (Auto) 0.3 Baso # (Auto) 0.1 Immature Gran % 2.5 Nucleated RBC % 0.3 Immature Gran # 0.35 Nucleated RBCs # 0.04 Sodium 145 Potassium 3.2 L Chloride 109 H Carbon Dioxide 26 Anion Gap 13.2 BUN 7 Creatinine 0.80 GFR Calculation 126 BUN/Creatinine Ratio 8.00 Glucose 89 POC Glucose 102 Calculated Osmolality 284.7 Calcium 7.9 L Magnesium 1.9 Triglycerides 128 Cholesterol 158 LDL Cholesterol 103.0 VLDL Cholesterol 25.6 HDL Cholesterol 37 L Heart Disease Risk Ratio 4.27 07/09/16 07/09/16 07/09/16 21:50 16:07 11:24 WBC RBC Hgb Hct MCV MCH MCHC RDW Plt Count MPV Neut % (Auto) Lymph % (Auto) Rock % (Auto) Eos % (Auto) Baso % (Auto) Neut # (Auto) Lymph # (Auto) Rock # (Auto) Eos # (Auto) Baso # (Auto) Immature Gran % Nucleated RBC % Immature Gran # Nucleated RBCs # Sodium Potassium Chloride Carbon Dioxide Anion Gap BUN Creatinine GFR Calculation BUN/Creatinine Ratio Glucose POC Glucose 167 H 107 H 214 H Calculated Osmolality Calcium Magnesium Triglycerides Cholesterol LDL Cholesterol VLDL Cholesterol HDL Cholesterol Heart Disease Risk Ratio Preliminary micro results at discharge 07/08/16 Unknown Urine Culture - Preliminary Urine,Voided Yeast DS: Provider Date of admission: 07/04/16 13:52 Primary care physician: . No PCP Attending physician on admission: Olaf Dooley Consults: 07/04/16 14:45 Consult to Diabetes Center, Educator [CONS] Routine Reason for Logger Driving Horses: Diabetes Education Initial Insulin Education Consult Comment: INSULIN EDUCATION 07/04/16 15:18 Consult to Pharmacy [CONS] Routine Reason for Pharmacy Consult: Adjust Meds Renal Funct 07/04/16 18:25 Consult to Diabetes Center, Educator [CONS] Routine Reason for Logger Driving Horses: Diabetes Education 07/04/16 18:27 Consult to Diabetes Center, Educator [CONS] Routine Reason for Logger Driving Horses: Evaluate and Recommend Diabetes Education Diet Consult to Pharmacy [CONS] Routine Reason for Pharmacy Consult: Dose/Manage Antibiotics 07/04/16 18:28 Consult to Physician [CONS] Routine Comment: ABCESS TO MONS PUBIS/ DKA Consulting Provider: Lino Vail Consulting Provider Notified: Yes When should Consulting Provider be notified: In am Consult to Specialist Group: Surgery When should Consulting Provider be notified: In am Person Notified: Dr. Vail Date Notified: 07/05/16 Time Notified: 07:30 Consult Notification Comment: notified Dr. Vail of new consult when he rounded in the unit. 07/04/16 18:42 Consult to Pharmacy [CONS] Routine Reason for Pharmacy Consult: Dose/Manage Antibiotics 07/05/16 07:35 Consult to Anesthesiology [CONS] Routine Consulting Provider: Reason for Anesthesiology: Pre-op Clearance Consult Comment: mac 07/05/16 10:31 Consult to Wound Care - [place] [CONS] Routine Reason for Wound Care: Wound Care Management Consult Comment: Pubic wound 07/07/16 12:56 Consult to Physician [CONS] Routine Comment: arrhythmia Consulting Provider: When should Consulting Provider be notified: Now Consult to Specialist Group: Cardiology Person Notified: BIANCA Date Notified: 07/07/16 Time Notified: 13:00 Consult Notification Comment: Dr Vargas saw on 07/07/16 1730 07/09/16 08:00 Consult to Physical Therapy [CONS] Routine Reason for Physical Therapy: Weakness Ambulation 07/09/16 08:06 Consult to Case Mgmt/Social Srvs [CONS] Routine Reason for Case Mgmt/Social Srvs: Discharge Planning Home Health Other Consult Comment: Consider [facility] or home health for continued wound care Consult to Case Mgmt/Social Srvs [CONS] Routine Reason for Case Mgmt/Social Srvs: Discharge Planning 07/09/16 08:30 Consult to Physician [CONS] Routine Comment: The patient can be seen on Saturday Consulting Provider: Kailyn Gray Consulting Provider Notified: No Person Notified: olga Date Notified: 07/09/16 Time Notified: 10:04 Consult Notification Comment: 48-year-old woman with known sleep apnea but is noncompliant with her CPAP. She is having atrial fibrillation and hypertension. Please evaluate to see if she would be a candidate for some of the newer technology which she might be able to tolerate better for treatment of her sleep apnea. She is willing to hear when she have to say and consider trying newer therapy. Thank you 07/10/16 09:41 Consult to Case Mgmt/Social Srvs [CONS] Routine Reason for Case Mgmt/Social Srvs: Home Health Equipment Consult Comment: PT and wound care, rollator walker for home Discharging clinician: SEVERIANO Kang Expected date of discharge: 07/10/16
--- NOTE | 2016-07-10 10:13 | Cardiology Progress Note ---
Assessment and Plan - Time spent with patient Time spent with patient: Greater than 30 minutes (1) Type 2 diabetes mellitus Status: Chronic Assessment and plan: See plan of care listed below Current Visit: No (2) Morbid obesity Status: Chronic Assessment and plan: See plan of care listed below Current Visit: No (3) Gastroparesis Status: Chronic Assessment and plan: See plan of care listed below Current Visit: Yes (4) Abscess of pubic region Status: Resolved Assessment and plan: See plan of care listed below Current Visit: Yes (5) Atrial fibrillation with rapid ventricular response Status: Resolved Assessment and plan: See plan of care listed below Current Visit: Yes (6) Obstructive sleep apnea Status: Chronic Assessment and plan: See plan of care listed below Current Visit: Yes (7) Left ventricular hypertrophy Status: Chronic Assessment and plan: See plan of care listed below Current Visit: Yes (8) 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 VARGAS PCP: DR. MACKENZIE MÉNDEZ SUMMARY: 56-year-old female, admitted through the emergency department after experiencing atrial fibrillation with rapid ventricular response. She was treated with IV Amiodarone, oral Metoprolol and IV Cardizem. She converted back to normal sinus rhythm. She has remained in normal sinus rhythm. She denies chest pain, heaviness or tightness. She underwent echocardiogram which revealed the following: EF 55%, moderate to severe concentric left ventricular hypertrophy. Dr. Adams has been consulted for evaluation of sleep disorder. Originally, she sought advice in the emergency department for a pubic abscess. She is currently being treated with vancomycin after surgical debridement of abscess of the pubis. She will require long-term wound care at discharge JULY 09, 2016: Over the weekend, she is remained in normal sinus rhythm. She denies chest pain, heaviness or tightness. She is to be evaluated by Dr. Adams today. She is also being treated for a urinary tract infection. Labs today reveal hypokalemia. Will replace accordingly. Will also draw a magnesium level. At this point she is receiving the following: Diltiazem 60 mg orally 4 times daily, metoprolol tartrate 50 mg orally twice daily. She is taking an BEV inhibitor as well. She is also on Lovenox 80 mg subcu every 12 hours. Will check a fasting lipid profile in the morning. Systolic blood pressure averaging 130s-140s. This evening, I will stop her short acting diltiazem and in the morning will start a higher dose long-acting diltiazem. Will further discuss with Dr. Wheatley the need for possible formal anticoagulation. CHADVASC SCORE 3. JULY 10, 2016: Overnight, patient has remained in NSR. Eliquis has been started for stroke prevention. She is anxious for release home and I will arrange for follow-up with Dr. Vargas in 2-3 weeks. Cardiac discharge medications include: Eliquis 5mg orally BID Cardizem CD 360 mg orally daily Lisinopril 40 mg orally daily Metoprolol tartrate 50 mg orally twice daily Potassium chloride 20 mEq orally daily Atorvastatin 20 mg orally each evening Recommend BMP, magnesium with her primary care provider in 1 week. ASSESSMENT/PLAN: 1. ATRIAL FIBRILLATION WITH RVR -remains in normal sinus rhythm. Eliquis for stroke prevention has been initiated 2. HYPERTENSION - adjusted meds this morning. 3. DYSLIPIDEMIA -LDL 103. Not at goal. Adding Atorvastatin 20 mg orally each evening 4. DIABETES - continue current plan of care 5. GASTROPARESIS - continue current plan of care 6. HYPOKALEMIA - currently receiving replacement 7. SLEEP DISORDER - Dr. Adams addressed. 8. LVH - severe. Good BP control recommended. Adjustments in medications during this admission. 9. PUBIC ABCESS - being treated by Dr. Vail Exam (Progress Note) - Constitutional Vitals: Period Temp Pulse Resp BP Sys/Malagon Pulse Ox Last 24 Hr 97.1 F-99.5 F 71-80 18-20 125-189/63-85 95-100 Exam: General: [Appears well with no apparent distress.] [Pleasant and cooperative. ] [Appears comfortable.] HEENT: [PERRL, normocephalic, atraumatic. Mucous membranes moist. No jaundice noted. Conjunctiva moist and clear, sclerae anicteric] Neck: No JVD/HJR, no thyromegaly or lymphadenopathy noted. No carotid bruit appreciated Cardiac: [Regular rate and rhythm.] [No obvious murmur rub or gallop.] Lungs: [Clear to auscultation without accessory muscle use to assist the respiratory pattern.] Not requiring oxygen Abdomen: Soft, bowel sounds normoactive. Nontender and nondistended. No abdominal bruit or thrill noted. No masses noted. Musculoskeletal: No fluid collection. Decreased range of motion is noted. Extremities: No clubbing, cyanosis noted. [ No edema noted.] Upper extremity pulses 2+. Lower extremity pulses 2+. Capillary refill less than 3 seconds. Skin: No unusual lesions or rashes. No skin breakdown appreciated. Neuro: Awake, alert and oriented 3. Moves all extremities well without hemiparesis or paralysis. No essential tremor is appreciated. Result/EKG - Labs CBC & BMP: 07/10/16 03:51 07/10/16 03:51 Lab Results: I have reviewed the past 24 hour labs Labs: Laboratory Results - last 24 hr 07/09/16 07/09/16 07/09/16 11:24 16:07 21:50 WBC RBC Hgb Hct MCV MCH MCHC RDW Plt Count MPV Neut % (Auto) Lymph % (Auto) Lake % (Auto) Eos % (Auto) Baso % (Auto) Neut # (Auto) Lymph # (Auto) [place] # (Auto) Eos # (Auto) Baso # (Auto) Immature Gran % Nucleated RBC % Immature Gran # Nucleated RBCs # Sodium Potassium Chloride Carbon Dioxide Anion Gap BUN Creatinine GFR Calculation BUN/Creatinine Ratio Glucose POC Glucose 214 H 107 H 167 H Calculated Osmolality Calcium Magnesium Triglycerides Cholesterol LDL Cholesterol VLDL Cholesterol HDL Cholesterol Heart Disease Risk Ratio 07/10/16 07/10/16 07/10/16 03:51 03:51 07:24 WBC 14.1 H RBC 4.28 Hgb 11.0 L Hct 34.2 L MCV 79.9 L MCH 26 L MCHC 32.2 RDW 14.0 Plt Count 242 MPV 10.3 Neut % (Auto) 63.3 Lymph % (Auto) 20.9 L [place] % (Auto) 10.6 Eos % (Auto) 2.3 Baso % (Auto) 0.4 Neut # (Auto) 9.0 H Lymph # (Auto) 3.0 [place] # (Auto) 1.5 H Eos # (Auto) 0.3 Baso # (Auto) 0.1 Immature Gran % 2.5 Nucleated RBC % 0.3 Immature Gran # 0.35 Nucleated RBCs # 0.04 Sodium 145 Potassium 3.2 L Chloride 109 H Carbon Dioxide 26 Anion Gap 13.2 BUN 7 Creatinine 0.80 GFR Calculation 126 BUN/Creatinine Ratio 8.00 Glucose 89 POC Glucose 102 Calculated Osmolality 284.7 Calcium 7.9 L Magnesium 1.9 Triglycerides 128 Cholesterol 158 LDL Cholesterol 103.0 VLDL Cholesterol 25.6 HDL Cholesterol 37 L Heart Disease Risk Ratio 4.27 - EKG EKG results: interpreted by me EKG shows: sinus rhythm Specialty Discharge - Follow Up or Referrals Follow up with: Mackenzie Méndez [Physician] - 1 Week (Labs: BMP, Mg, CBC) Martinez Vargas MD [Physician] - (2-3 weeks. EKG at visit)
[2016-07-10 12:02] VITALS: BP 152/89
--- NOTE | 2016-07-10 13:07 | Sleep Medicine Progress Note ---
Assessment and Plan (1) Obstructive sleep apnea Status: Chronic Assessment and plan: Given difficulty tolerating auto titration BiPAP and uncontrolled sleep apnea with intervention, we will bring her in for formal polysomnography and titration. Current Visit: Yes (2) Type 2 diabetes mellitus Status: Chronic Current Visit: No (3) Atrial fibrillation with rapid ventricular response Status: Resolved Current Visit: Yes Sleep Medicine Subjective Interval history: Patient did use auto titration BiPAP last night and slept with it for over 10 hours. Her average IPAP was about 11 cm and her average EPAP about 6 cm. However she stated that she poorly tolerated it and did not enjoy it. Her average AHI was 8.5. She did have some leak with her mask. Given her intolerance with auto BiPAP, I think we need to get her back in the sleep lab for formal titration to best identify what works for her. We will refrain from prescribing auto titration device at discharge and set her up for outpatient sleep study within the next 2 weeks. Exam (Progress Note) - Constitutional Vitals: Period Temp Pulse Resp BP Sys/Malagon Pulse Ox Last 24 Hr 97.1 F-99.5 F 71-80 18-20 127-189/63-89 95-100 Exam: She is alert and responsive in no acute distress. Chest with good air movement no focal wheeze, rhonchi, or rales. Cardiac exam reveals a regular rhythm without murmur or gallop. Abdomen soft nontender extremities without increased edema. Results - Labs CBC & BMP: 07/10/16 03:51 07/10/16 03:51 Lab Results: I have reviewed the past 24 hour labs Specialty Discharge - Follow Up or Referrals Follow up with: [facility] [Other] - 1 Week (follow up DKA) Martinez Vargas MD [Physician] - 07/30/16 8:00 am (2-3 weeks. EKG at visit) Kailyn Gray MD [Physician] - (call dr gray for follow up and make sure pt has everything CPAP for dc) Lino Vail MD [Physician] - 07/23/16 10:15 am (BRING TO APPT. YOUR INSURANCE CARDS, PHOTO ID AND ALL MEDICATIONS) Isaias Méndez [Physician] - 07/17/16 1:00 pm (Labs: BMP, Mg, CBC)
[2016-07-10] MEDS ORDERED: ATORVASTATIN 20 MG TABLET PO SCH (21:00)
[2016-07-11] MEDS ORDERED: DILTIAZEM CD 180 MG CAPSULE PO SCH (09:00)
== END 2016-07-10 14:47 | disposition home health service (06) | DRG 622 ==
LOC: EDBD → EDUNIT# → N.ED 13:10 → SUATTDRO 13:52 → N.EDINP 13:56 → N.ICU 14:33 → N.TELEN 07-08 15:25
PROVIDERS: ATTEND Internal Medicine

== ENCOUNTER 2018-01-17 09:39 | Inpatient (IN) ==
[2018-01-17] MEDS ORDERED: PROMETHAZINE 25 MG/1 ML VIAL IM STA (10:10)
[2018-01-17] MEDS ORDERED: ONDANSETRON 4 MG/2 ML VIAL IV STA (10:10)
[2018-01-17] MEDS ORDERED: SODIUM CHLORIDE 0.9% 1,000 ML IV STA (10:10)
[2018-01-17 10:50] LABS: Basophils % 0.2 % (0.0-0.8); Hematocrit 49.4 VOL% (35.7-47.0); Hemoglobin 15.6 GM/DL (12.0-16.0); Immature Granulocytes % 0.4 %; Immature Granulocytes Absolute 0.05 #; Lymphocytes # 1.8 10*3/uL (1.4-4.0); Lymphocytes % 14.1 % (21.3-54.2); Mean Corpuscular HGB Conc 31.6 GM/DL (32-36); Mean Corpuscular Hemoglobin 25 PG (27-34); Mean Corpuscular Volume 79.3 FL (87-102); Mean Platelet Volume 10.4 FL (9.6-12.0); Monocytes # 0.3 10*3/uL (0.11-0.8); Monocytes % 2.2 % (1.7-12.7); Neutrophils # 10.4 10*3/uL (1.4-7.4); Neutrophils % 83.1 % (38.7-73.9); Platelet Count 309 T/CUMM (130-400); Red Blood Count 6.23 MC/CUMM (3.8-5.5); Red Cell Distribution Width 16.8 % (9.3-17.3); White Blood Count 12.5 T/CUMM (4-12)
[2018-01-17 11:02] LABS: Calcium 9.9 MG/DL (8.5-10.1); Osmolality,Calculated 293.4 MOS/KG (273-304); Potassium 4.7 MMOL/L (3.5-5.1)
[2018-01-17 11:07] LABS: Apearance,Urine Slightly Hazy (Clear); Bilirubin,Urine Negative (Negative); Blood, Urine Negative (Negative); Glucose,Urine (UA) >=500 mg/dL (Negative); Ketones,Urine 20 mg/dL (Negative); Nitrite,Urine Negative (Negative); Protein,Urine Negative; RBC,Urine 1 /HPF (0-4); Squamous Epithelial Cell,Urine Occasional /HPF (0-10); Urine Color Yellow (Yellow); Urine Specific Gravity 1.027 (1.001-1.035); Urine Urobilinogen < 2.0 EU/DL (0.2-1.0); WBC,Urine 1 /HPF (0-6)
[2018-01-17] MEDS ORDERED: INSULIN REGULAR 100 UNIT/ML IV STA (12:10)
[2018-01-17 12:44] LABS: ABG Base Excess -4.6 MMOL/L (-2.5-2.5); ABG HCO3 17.5 MMOL/L (20-26); ABG Oxygen Saturation 97.5 % (95-100); ABG PCO2 25.8 MM HG (35-48); ABG PO2 96.8 MM HG (80-95); ABG TCO2 18.3 MMOL/L (23-27)
[2018-01-17] MEDS ORDERED: ONDANSETRON 4 MG/2 ML VIAL IV PRN (14:04)
[2018-01-17] MEDS ORDERED: DEXTROSE 50% 25 GM/50 ML VIAL IV PRN ×2 (14:04)
[2018-01-17] MEDS ORDERED: SODIUM PHOSPHATE INJ 30 MMOL in SODIUM CHLORIDE 0.9% 250 ML IV PRN (14:04)
[2018-01-17] MEDS ORDERED: SODIUM BICARB INJ 100 MEQ in STERILE WATER INJ 400 ML IV PRN (14:04)
[2018-01-17] MEDS ORDERED: DOCUSATE SODIUM 100 MG CAPSULE PO PRN (14:04)
[2018-01-17] MEDS ORDERED: LACTULOSE 20 GM/30 ML UDCUP PO PRN (14:04)
[2018-01-17] MEDS ORDERED: ALBUTEROL 2.5 MG/3 ML NEB RESP TX PRN (14:04)
[2018-01-17] MEDS ORDERED: GLUCAGON 1 MG VIAL IM PRN (14:11)
[2018-01-17] MEDS ORDERED: POTASSIUM CHLORIDE RIDER 10 MEQ in PREMIX 1 EACH IV PRN (14:11)
[2018-01-17] MEDS ORDERED: MAGNESIUM SULF RIDER 2 GM in PREMIX 1 EACH IV PRN (14:11)
[2018-01-17] MEDS ORDERED: MAGNESIUM SULF RIDER 4 GM in PREMIX 1 EACH IV PRN (14:11)
[2018-01-17] MEDS ORDERED: SODIUM CHLORIDE 0.9% 1,000 ML IV SCH ×2 (15:04→19:04)
[2018-01-17] MEDS ORDERED: INFLUENZA VIRUS VACCINE 0.5 ML SYRINGE IM ONE (15:31)
[2018-01-17 15:37] LABS: Calcium 9.1 MG/DL (8.5-10.1); Osmolality,Calculated 294.1 MOS/KG (273-304); Potassium 4.2 MMOL/L (3.5-5.1)
[2018-01-17] MEDS: INSULIN REGULAR DRIP 100 ML IV SCH (15:37)
[2018-01-17] MEDS: DEXTROSE 5% NACL 0.9% 1,000 ML IV SCH ×2 (15:54→17:40)
[2018-01-17 19:49] LABS: Calcium 8.4 MG/DL (8.5-10.1); Osmolality,Calculated 299.4 MOS/KG (273-304); Potassium 3.8 MMOL/L (3.5-5.1)
[2018-01-17] MEDS ORDERED: DEXTROSE 5% NACL 0.9% 1,000 ML IV SCH (20:00)
[2018-01-17] MEDS: APIXABAN 5 MG TABLET PO SCH (20:31)
[2018-01-17] MEDS: ATORVASTATIN 20 MG TABLET PO SCH (20:31)
[2018-01-17] MEDS: MONTELUKAST 10 MG TABLET PO SCH (20:31)
[2018-01-17 23:05] LABS: Calcium 8.1 MG/DL (8.5-10.1); Osmolality,Calculated 294.7 MOS/KG (273-304); Potassium 3.7 MMOL/L (3.5-5.1)
[2018-01-18] MEDS: DEXT 5% NACL 0.45% KCL 20 MEQ 20 MEQ/1,000 ML BAG IV SCH ×2 (00:07→04:11)
[2018-01-18 02:38] LABS: Basophils # 0.1 10*3/uL (0.0-0.2); Basophils % 0.4 % (0.0-0.8); Eosinophils # 0.2 10*3/uL (0.0-0.87); Eosinophils % 1.2 % (0.00-10.9); Hematocrit 38.5 VOL% (35.7-47.0); Hemoglobin 11.9 GM/DL (12.0-16.0); Immature Granulocytes % 0.4 %; Immature Granulocytes Absolute 0.05 #; Lymphocytes # 3.9 10*3/uL (1.4-4.0); Lymphocytes % 31.6 % (21.3-54.2); Mean Corpuscular HGB Conc 30.9 GM/DL (32-36); Mean Corpuscular Hemoglobin 25 PG (27-34); Mean Corpuscular Volume 82.3 FL (87-102); Mean Platelet Volume 10.5 FL (9.6-12.0); Monocytes # 1.1 10*3/uL (0.11-0.8); Monocytes % 8.9 % (1.7-12.7); Neutrophils # 7.1 10*3/uL (1.4-7.4); Neutrophils % 57.5 % (38.7-73.9); Platelet Count 239 T/CUMM (130-400); Red Blood Count 4.68 MC/CUMM (3.8-5.5); Red Cell Distribution Width 15.6 % (9.3-17.3); White Blood Count 12.4 T/CUMM (4-12)
[2018-01-18 02:56] LABS: Calcium 8.1 MG/DL (8.5-10.1); Osmolality,Calculated 292.7 MOS/KG (273-304); Potassium 3.5 MMOL/L (3.5-5.1)
[2018-01-18 03:01] LABS: Risk Ratio 3.05; VLDL CHOLESTEROL 14.8 MG/DL
[2018-01-18] MEDS: INSULIN REGULAR DRIP 100 ML IV SCH (06:09)
[2018-01-18 06:44] LABS: Calcium 8.2 MG/DL (8.5-10.1); Potassium 3.9 MMOL/L (3.5-5.1)
[2018-01-18] MEDS: SODIUM CHLORIDE 0.45% 1,000 ML IV SCH ×2 (06:49→16:19)
[2018-01-18] MEDS: FLUoxetine 20 MG CAPSULE PO SCH (08:18)
[2018-01-18] MEDS: APIXABAN 5 MG TABLET PO SCH ×2 (08:18→20:38)
[2018-01-18] MEDS: ASPIRIN EC 81 MG TABLET PO SCH (08:18)
[2018-01-18] MEDS ORDERED: LISINOPRIL 10 MG TABLET PO SCH (09:00)
[2018-01-18] MEDS ORDERED: CHLORTHALIDONE 25 MG TABLET PO SCH (09:00)
[2018-01-18] MEDS ORDERED: PANTOPRAZOLE 40 MG TABLET PO SCH (09:00)
[2018-01-18] MEDS: CYANOCOBALAMIN 100 MCG TABLET PO SCH (09:08)
[2018-01-18] MEDS: POTASSIUM CHLORIDE 20 MEQ PACK PO SCH (09:08)
[2018-01-18] MEDS: INSULIN GLARGINE 100 UNIT/ML SUBCUT SCH (09:08)
[2018-01-18] MEDS: CHOLECALCIFEROL 1,000 UNIT TABLET PO SCH (09:10)
[2018-01-18] MEDS: MULTIVITAMIN (BEROCCA) TABLET PO SCH (09:10)
[2018-01-18] MEDS: MULTIVITAMIN (CENTRUM) TABLET PO SCH (09:10)
[2018-01-18] MEDS: PANTOPRAZOLE 40 MG TABLET PO SCH (09:11)
[2018-01-18] MEDS: VITAMIN A 10,000 UNIT CAPSULE PO SCH (09:11)
[2018-01-18] MEDS: INSULIN ASPART PROTAMINE/ASPART 70/30 100 UNIT/ML SUBCUT SCH ×2 (12:38→16:20)
[2018-01-18] MEDS: INSULIN REGULAR 100 UNIT/ML SUBCUT SCH ×3 (12:38→20:36)
[2018-01-18] MEDS: ATORVASTATIN 20 MG TABLET PO SCH (20:38)
[2018-01-18] MEDS: MONTELUKAST 10 MG TABLET PO SCH (20:39)
[2018-01-19] MEDS: SODIUM CHLORIDE 0.45% 1,000 ML IV SCH ×2 (00:14→08:07)
[2018-01-19 05:51] LABS: Calcium 7.7 MG/DL (8.5-10.1); Osmolality,Calculated 279.5 MOS/KG (273-304); Potassium 4.1 MMOL/L (3.5-5.1)
[2018-01-19 06:04] LABS: Basophils % 0.5 % (0.0-0.8); Eosinophils # 0.3 10*3/uL (0.0-0.87); Eosinophils % 4.1 % (0.00-10.9); Immature Granulocytes % 0.3 %; Immature Granulocytes Absolute 0.02 #; Lymphocytes # 3.1 10*3/uL (1.4-4.0); Lymphocytes % 38.3 % (21.3-54.2); Mean Corpuscular HGB Conc 29.9 GM/DL (32-36); Mean Corpuscular Hemoglobin 26 PG (27-34); Mean Corpuscular Volume 85.9 FL (87-102); Mean Platelet Volume 10.8 FL (9.6-12.0); Monocytes # 0.6 10*3/uL (0.11-0.8); Monocytes % 7.1 % (1.7-12.7); Neutrophils % 49.7 % (38.7-73.9); Platelet Count 179 T/CUMM (130-400); Red Blood Count 5.88 MC/CUMM (3.8-5.5); Red Cell Distribution Width 15.5 % (9.3-17.3)
[2018-01-19 06:09] LABS: Hematocrit 43.5 VOL% (35.7-47.0); Hemoglobin 15.1 GM/DL (12.0-16.0)
[2018-01-19] MEDS: INSULIN ASPART PROTAMINE/ASPART 70/30 100 UNIT/ML SUBCUT SCH ×2 (08:46→13:04)
[2018-01-19] MEDS: INSULIN GLARGINE 100 UNIT/ML SUBCUT SCH (08:46)
[2018-01-19] MEDS: ASPIRIN EC 81 MG TABLET PO SCH (08:47)
[2018-01-19] MEDS: MULTIVITAMIN (CENTRUM) TABLET PO SCH (08:47)
[2018-01-19] MEDS: CYANOCOBALAMIN 100 MCG TABLET PO SCH (08:47)
[2018-01-19] MEDS: POTASSIUM CHLORIDE 20 MEQ PACK PO SCH (08:47)
[2018-01-19] MEDS: FLUoxetine 20 MG CAPSULE PO SCH (08:47)
[2018-01-19] MEDS: PANTOPRAZOLE 40 MG TABLET PO SCH (08:47)
[2018-01-19] MEDS: MULTIVITAMIN (BEROCCA) TABLET PO SCH (08:47)
[2018-01-19] MEDS: APIXABAN 5 MG TABLET PO SCH (08:48)
[2018-01-19] MEDS: CHOLECALCIFEROL 1,000 UNIT TABLET PO SCH (08:48)
[2018-01-19] MEDS: INSULIN REGULAR 100 UNIT/ML SUBCUT SCH ×2 (10:07→12:00)
[2018-01-19] MEDS: VITAMIN A 10,000 UNIT CAPSULE PO SCH (10:08)
[2018-01-19 11:45] VITALS: BP 147/84
== END 2018-01-19 14:50 | disposition home or self-care (01) | DRG 638 ==
LOC: EDUNIT# → EDBD → N.ED 09:39 → N.EDINP 14:04 → SUATTDRO 14:04 → N.ICU 15:10 → N.2E 01-18 09:51
PROVIDERS: ADMIT Internal Medicine Infectious Disease; ATTEND Family Medicine